=== PATIENT | female | born 1995 | race African-American/Black ===

== ENCOUNTER 2021-04-11 14:10 | Inpatient (IN) | payer OTHER, SELFPAY ==
[2021-04-11 17:53] VITALS: BP 132/91; PULSE 87; RESP 18; TEMP 36.3; O2SAT 99
--- NOTE | 2021-04-11 19:50 | PC.ADMIT ---
PT. IS A 26 YEAR OLD, BLACK, LITHUANIAN SPEAKING FEMALE WHO PRESENTS TO [facility] A TRANSMIT FROM [facility] AT APPROX 14:50 ON A CV STATUS. COVID TEST IS PENDING, UTOX WAS NOT ADMINISTERED. PT. REPORTS THE OCCASIONAL USE OF MARIJUANA. PT. HAS HAD PREVIOUS PSYCHIATRIC SERVICES, HER MOTHER CALLED 911 YESTERDAY AND REPORTED PT IS IN A CRISIS. MOTHER STATED HER DAUGHTER HAS BEEN RELIGIOUSLY PRE-OCCUPIED, TALKING ABOUT PROPHECY AND REPORTING DELUSIONS. MOTHER REPORTED PT. HAS NOT BEEN SLEEPING. PT. HERSELF IDENTIFIED THIS HER MAJOR ISSUE. I HAVE BEEN UP FOR 29 HOURS, USUALLY I'M UP FOR 24 HOURS . PT. DENIED SI,HI, SH, DEPRESSION AND ANXIETY. PT. HAS A DX OF BIPOLAR UNSP. WITH PSYCHOTIC FEATURES. PT. WAS HYPER VERBAL DURING ADMISSION, SHE WAS COOPERATIVE AND APPROPRIATE WHEN REDIRECTED BACK TO ASK QUESTIONS. SHE SIGNED ALL LEGALS, SAFETY TOOL OBTAINED AND SIGNED. PT. WAS ORIENTED TO UNIT, SHE NEVER SMOKED CIGARETTES. MED. ORDERS SEND TO [facility]AMMOND, PT. IS ON 15 MIN. SAFETY CHECKS. SHE REPORTED TO FEEL SAFE AND TO SEEK STAFF IF SAFETY ISSUES WILL ARISE.
[2021-04-11] MEDS: OLANZapine 5 MG TABLET PO (21:25)
[2021-04-11] MEDS: hydrOXYzine HCL 25 MG TABLET PO (21:31)
[2021-04-12] MEDS: OLANZapine 5 MG TABLET PO (04:21)
[2021-04-12] MEDS: Omeprazole 20 MG CAPSULE.DR PO (04:21)
[2021-04-12 06:00] VITALS: BP 130/61; PULSE 65; RESP 20; TEMP 36; O2SAT 100
[2021-04-12] MEDS: Montelukast Sodium 10 MG TABLET PO (08:11)
[2021-04-12] MEDS: Magnesium Oxide 400 MG TABLET 800 MG PO (08:11)
[2021-04-12 11:42] LABS: Amphetamine Screen Urine Not Detected (Not Detect); Barbiturates, Urine Not Detected (Not Detect); Benzodiazepines Screen Urine Not Detected (Not Detect); Cannabinoid Screen Urine POSITIVE (Not Detect); Cocaine Screen Urine Not Detected (Not Detect); Opiate Screen Urine Not Detected (Not Detect); Phencyclidine Screen Urine Not Detected (Not Detect)
[2021-04-12 12:15] LABS: MANUAL DIFF FLAG NO
[2021-04-12 12:22] LABS: Basophils Percent Auto 0.4 % (0-2); Eosinophils Absolute Auto 0.1 X10*3/uL (0.0-0.4); Eosinophils Percent Auto 1.2 % (0-4); Hematocrit 45.8 % (37-47); Hemoglobin 15.4 g/dl (12.0-16.0); Imm Gran Abs Auto 0.02 X10*3/uL (0.00-0.03); Imm Gran Pct Auto 0.2 % (0.0-0.4); Lymphocytes Absolute Auto 2.5 X10*3/uL (1.2-4.9); Lymphocytes Percent Auto 30.5 % (20-40); Mean Corpuscular HGB Conc 33.6 g/dl (31.0-35.0); Mean Corpuscular Volume 92.2 fL (80-98); Mean Platelet Volume 11.7 fL (9.4-12.3); Monocytes Absolute Auto 0.5 X10*3/uL (0.1-1.2); Neutrophils Absolute Auto 5.1 X10*3/uL (2.0-8.3); Neutrophils Percent Auto 61.7 % (45-73); Platelet Count 238 X10*3/uL (160-400); Red Blood Count 4.97 X10*6/uL (4.20-5.50); Red Cell Distribution Width 11.6 % (11.0-16.0); White Blood Count 8.3 X10*3/uL (4.8-10.8)
[2021-04-12 12:48] LABS: Anion Gap 15 (12-20); Blood Urea Nitrogen 10 mg/dL (9-16); Carbon Dioxide 21 mmol/L (22-29); Chloride 105 mmol/L (96-108); Estimated Glomerular Filt Rate > 60; Potassium 4.1 mmol/L (3.3-5.1); Sodium 137 mmol/L (135-145)
[2021-04-12 12:50] LABS: Alanine Aminotransferase 11 U/L (0-31); Albumin Level 5.1 g/dL (3.5-5.0); Alkaline Phosphatase 70 U/L (39-117); Aspartate Amino Transferase 15 U/L (5-31); Bilirubin Direct 0.4 mg/dL (0.0-0.5); Total Protein 8.7 g/dL (6.5-8.0)
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
--- NOTE | 2021-04-12 15:29 | PM.IMCN ---
History of Present Illness Data of Consult Service Date: 04/12/21 Requesting physician: Grant Hankins Primary Care Provider: Juana Lucia NP HPI Reason for consult: Routine Medical H&P This is a 26 yo F admitted to . Medical services consulted for routine medical H&P. Pt is seen and examined in her room. She endorses no medical complaints. She reports a history of asthma for which is was previously on singulair and PRN albuterol inhaler. She reports not being on them currently. She reports she was prescribed them in the past, but has not picked them up. She denies any current shortness of breath, cough or wheezing. Review of Systems Review of Systems: General - no fevers or chills Cardiovascular - no chest pain Respiratory - no shortness of breath or cough Abdominal- no abdominal pain, nausea, vomiting, diarrhea PMFSH Medical History (Updated 04/12/21 @ 15:33 by Eliseo Benavides MD) Asthma Bipolar 1 disorder Pertinent family history: CAD Social History Household Members: Family Housing: House Do you presently have visiting nurse or other home services: No Patient Tobacco Use Status: Never used Tobacco Smoked in Last 30 Days: No Patient Interested in Nicotine Replacement: No Patient Given Instructions on How to Stop Smoking: No Second Hand Smoke Exposure: No Use of substances other than those prescribed or required for medical reasons: Yes Substance Use Type: Marijuana Substance Use Frequency: Occasionally Last Used Substance: Just Prior to Admission Currently Displaying Signs/Symptoms of Drug Intoxication Withdrawal: No Any prior treatment program specific to substance use: No Have you been hit, kicked, punched, or otherwise hurt by someone within the past year? If so, by whom?: No Do you feel safe in your current relationship?: Yes Is there a partner from a previous relationship who is making you feel unsafe now?: No Are you made to feel afraid or neglected: No Spiritual Healthcare Practices: n/a [facility] Practices: [employer] Cultural Healthcare Practices: n/a Advance Directives: No Advance Directives Information Provided: No Advance Directives on File: No Do you have thoughts of harming others: None Do you have a plan to hurt others: No Plan Recently lost weight without trying: No Eating poorly because of decreased appetite: No Patient : No : No Poor oral hygiene: No Meds Allergies Allergy/AdvReac Type Severity Reaction Status Date / Time Sulfa (Sulfonamide Allergy Unknown DENIES Unverified 06/29/20 19:35 Antibiotics) [SULFA (SULFONAMIDE ANTIBIOTICS)] Active Medications: Current Medications Generic Name Dose Route Start Last Admin Trade Name Freq PRN Reason Stop Dose Admin Acetaminophen 650 mg 04/11/21 18:11 Acetaminophen 325 Mg Tablet PO Q6H PRN Headache/Pain Mild Scale (1-3) Al Hydroxide/Mg Hydroxide 30 ml 04/11/21 18:11 Magnesium Hydrox/Alum Hydrox 30 Ml Oral.Susp PO Q6H PRN Heartburn/Nausea Albuterol Sulfate 2 puff 04/11/21 18:15 Albuterol Sulfate 90 Mcg 8 Gm Inhaler INHALE Q4H PRN Shortness of Breath Hydroxyzine HCl 25 mg 04/11/21 18:11 04/11/21 21:31 Hydroxyzine Hcl 25 Mg Tablet PO 25 mg BEDTIME PRN Administration Anxiety Magnesium Hydroxide 30 ml 04/11/21 18:11 Milk Of Magnesia 30 Ml Oral.Susp PO DAILY PRN Constipation Magnesium Oxide 800 mg 04/12/21 09:00 04/12/21 08:11 Magnesium Oxide 400 Mg Tablet PO 800 mg DAILY MANUELA Administration Montelukast Sodium 10 mg 04/12/21 09:00 04/12/21 08:11 Montelukast Sodium 10 Mg Tablet PO 10 mg DAILY MANUELA Administration Olanzapine 5 mg 04/11/21 21:00 04/11/21 21:25 Olanzapine 5 Mg Tablet PO 5 mg BEDTIME MANUELA Administration Olanzapine 5 mg 04/11/21 18:44 04/12/21 04:21 Olanzapine 5 Mg Tablet PO 5 mg BEDTIME PRN Administration Insomnia Omeprazole 20 mg 04/12/21 06:30 04/12/21 04:21 Omeprazole 20 Mg Capsule.Dr PO 20 mg DAILY@0630 MANUELA Administration Physical Exam Vital Signs and Narrative: Vital Signs: Last Vital Signs Temp 96.8 F 04/12/21 06:00 Pulse 65 04/12/21 06:00 Resp 20 04/12/21 06:00 BP 130/61 04/12/21 06:00 Pulse Ox 100 04/12/21 06:00 Const: Other: General - no acute distress, appears comfortable Cardiovascular - regular rate and rhythm, S1-S2 Lungs - normal respiratory effort, clear to auscultation bilaterally, no wheezing Abdomen - soft, nontender, no rebound or guarding Extremities - no edema bilaterally Neuro - awake and alert, no focal deficits Results Labs CBC and Chem 7: 04/12/21 12:07 04/12/21 12:07 Labs: Laboratory Results - last 24 hr 04/11/21 04/12/21 04/12/21 Unknown 12:07 12:07 MCV 92.2 MCH 31.0 MCHC 33.6 RDW 11.6 Plt Count 238 MPV 11.7 Immature Gran % (Auto) 0.2 Neut % (Auto) 61.7 Lymph % (Auto) 30.5 [place] % (Auto) 6.0 Eos % (Auto) 1.2 Baso % (Auto) 0.4 Lymph # (Auto) 2.5 [place] # (Auto) 0.5 Eos # (Auto) 0.1 Baso # (Auto) 0.0 Abs Immat Gran (auto) 0.02 Absolute Neuts (auto) 5.1 Absolute Nucleated RBC 0.000 Nucleated RBC % (auto) 0.0 Anion Gap 15 Estim Creat Clear Calc TNP Estimated GFR > 60 Total Bilirubin Direct Bilirubin AST ALT Alkaline Phosphatase Total Protein Albumin Urine Opiates Screen Not Detected Ur Barbiturates Screen Not Detected Ur Phencyclidine Scrn Not Detected Ur Amphetamines Screen Not Detected U Benzodiazepines Scrn Not Detected Urine Cocaine Screen Not Detected U Marijuana (THC) Screen POSITIVE H 04/12/21 12:07 MCV MCH MCHC RDW Plt Count MPV Immature Gran % (Auto) Neut % (Auto) Lymph % (Auto) [place] % (Auto) Eos % (Auto) Baso % (Auto) Lymph # (Auto) [place] # (Auto) Eos # (Auto) Baso # (Auto) Abs Immat Gran (auto) Absolute Neuts (auto) Absolute Nucleated RBC Nucleated RBC % (auto) Anion Gap Estim Creat Clear Calc Estimated GFR Total Bilirubin 1.0 Direct Bilirubin 0.4 AST 15 ALT 11 Alkaline Phosphatase 70 Total Protein 8.7 H Albumin 5.1 H Urine Opiates Screen Ur Barbiturates Screen Ur Phencyclidine Scrn Ur Amphetamines Screen U Benzodiazepines Scrn Urine Cocaine Screen U Marijuana (THC) Screen Assessment and Plan (1) Routine check-up: Status: Acute This is a 26 yo F with a PMH of asthma (likely mild and intermittent per her reported symptoms / history) who is admitted to . Medical consultation sought for routine medical H&P. Patient has no active medical issues. In regards to her asthma, she reports that she was previously on Singulair and PRN albuterol. At this time, she does not have any active asthma symptoms. She does report to me that she has a PCP and I would recommend that she follow up with them to restart her asthma medications. She can use PRN albuterol while here if she feels short of breath or has wheezing. Would defer Singulair to oupatient / PCP. Continue care per primary team. Please re-consult if any issues arise.
[2021-04-12 18:00] VITALS: BP 132/85; PULSE 65; TEMP 36.5
[2021-04-12] MEDS: OLANZapine 7.5 MG TABLET PO (20:57)
[2021-04-12] MEDS: Lithium Carbonate ER 450 MG TABLET.ER PO (20:57)
[2021-04-13] MEDS: OLANZapine 7.5 MG TABLET PO ×2 (03:03→21:08)
[2021-04-13 04:32] LABS: HIV AB/AG Nonreactive (Nonreactive); HIV Num 1 0.06 S/CO (0.00-0.99)
[2021-04-13 06:00] VITALS: BP 112/67; PULSE 67; TEMP 36.4
[2021-04-13] MEDS: Omeprazole 20 MG CAPSULE.DR PO (06:41)
[2021-04-13] MEDS: Lithium Carbonate ER 450 MG TABLET.ER PO ×2 (08:55→20:53)
[2021-04-13] MEDS: Magnesium Oxide 400 MG TABLET 800 MG PO (08:55)
[2021-04-13] MEDS: Montelukast Sodium 10 MG TABLET PO (08:55)
--- NOTE | 2021-04-13 09:27 | P.PNPSI_ITS ---
Subjective Subjective Date of Service: 04/13/21 Reason For Visit: MOOD DISORDER Interim History: patient reports that she did sleep much of the night and is feeling better. However she says she knows she is still manic and though she is struggling to keep herself from talking fast and being intrusive, it is hard to do. Patient reports she is tolerating lithium well and wants to continue with it. She agrees to start gabapentin with a built-in taper just to help things calm down a bit. She said she does not like the diagnosis bipolar disorder because her [id number] has the same diagnosis and is extremely aggressive. Patient says that she worries she will be associated with that behavior; that said she does understand she has unsafe behaviors when manic. Patient said her parents have been very supportive and a both director social's and committed to helping her recover. Medication Compliance: Yes Side effects from medications: No Attending Groups: Yes Mental Status Exam Mental Status Exam Narrative: Pt is alert and oriented; behavior is cooperative, friendly; patient is not in distress; dressed in casual attire unkempt hair, but with adequate hygiene; mood is described as good and affect expansive; eye contact appropriate; Speech is pressured and a little loud, but able to interrupted. Ceasar e psychomotor agitation as she can be animated when talking; thought process is mostly organized and goal directed but can be circumstantial and repetitive. Thought content is on getting treatment and otherwise pertinent to relevant topics; some grandiosity but without any delusional content or paranoid ideations; denies any SI/HI. There is no evidence of perceptual disturbance and she denies aVH. Patients insight and judgment appear impaired. Diagnostics Vital Signs (24Hr): Vital Signs - 24 hr 04/12/21 18:00 04/13/21 06:00 Temperature 97.7 F 97.5 F Pulse Rate 65 67 Blood Pressure 132/85 112/67 Labs Results: 04/12/21 12:07 04/12/21 12:07 Labs: Laboratory Results - last 48 hr 04/11/21 04/12/21 04/12/21 Unknown 12:07 12:07 WBC 8.3 RBC 4.97 Hgb 15.4 Hct 45.8 MCV 92.2 MCH 31.0 MCHC 33.6 RDW 11.6 Plt Count 238 MPV 11.7 Immature Gran % (Auto) 0.2 Neut % (Auto) 61.7 Lymph % (Auto) 30.5 [place] % (Auto) 6.0 Eos % (Auto) 1.2 Baso % (Auto) 0.4 Lymph # (Auto) 2.5 [place] # (Auto) 0.5 Eos # (Auto) 0.1 Baso # (Auto) 0.0 Abs Immat Gran (auto) 0.02 Absolute Neuts (auto) 5.1 Absolute Nucleated RBC 0.000 Nucleated RBC % (auto) 0.0 Sodium 137 Potassium 4.1 Chloride 105 Carbon Dioxide 21 L Anion Gap 15 BUN 10 Creatinine 0.87 Estim Creat Clear Calc TNP Estimated GFR > 60 Total Bilirubin Direct Bilirubin AST ALT Alkaline Phosphatase Total Protein Albumin Urine Opiates Screen Not Detected Ur Barbiturates Screen Not Detected Ur Phencyclidine Scrn Not Detected Ur Amphetamines Screen Not Detected U Benzodiazepines Scrn Not Detected Urine Cocaine Screen Not Detected U Marijuana (THC) Screen POSITIVE H HIV 1&2 Ab/P24 Ag 4thGn 04/12/21 04/12/21 12:07 12:07 WBC RBC Hgb Hct MCV MCH MCHC RDW Plt Count MPV Immature Gran % (Auto) Neut % (Auto) Lymph % (Auto) [place] % (Auto) Eos % (Auto) Baso % (Auto) Lymph # (Auto) [place] # (Auto) Eos # (Auto) Baso # (Auto) Abs Immat Gran (auto) Absolute Neuts (auto) Absolute Nucleated RBC Nucleated RBC % (auto) Sodium Potassium Chloride Carbon Dioxide Anion Gap BUN Creatinine Estim Creat Clear Calc Estimated GFR Total Bilirubin 1.0 Direct Bilirubin 0.4 AST 15 ALT 11 Alkaline Phosphatase 70 Total Protein 8.7 H Albumin 5.1 H Urine Opiates Screen Ur Barbiturates Screen Ur Phencyclidine Scrn Ur Amphetamines Screen U Benzodiazepines Scrn Urine Cocaine Screen U Marijuana (THC) Screen HIV 1&2 Ab/P24 Ag 4thGn Nonreactive Medications Medications Current Medications Generic Name Dose Route Start Last Admin Trade Name Freq PRN Reason Stop Dose Admin Acetaminophen 650 mg 04/11/21 18:11 Acetaminophen 325 Mg Tablet PO Q6H PRN Headache/Pain Mild Scale (1-3) Al Hydroxide/Mg Hydroxide 30 ml 04/11/21 18:11 Magnesium Hydrox/Alum Hydrox 30 Ml Oral.Susp PO Q6H PRN Heartburn/Nausea Albuterol Sulfate 2 puff 04/11/21 18:15 Albuterol Sulfate 90 Mcg 8 Gm Inhaler INHALE Q4H PRN Shortness of Breath [place] Carbonate 450 mg 04/12/21 21:00 04/13/21 08:55 [place] Carbonate Er 450 Mg Tablet.Er PO 450 mg BID MANUELA Administration Magnesium Hydroxide 30 ml 04/11/21 18:11 Milk Of Magnesia 30 Ml Oral.Susp PO DAILY PRN Constipation Magnesium Oxide 800 mg 04/12/21 09:00 04/13/21 08:55 Magnesium Oxide 400 Mg Tablet PO 800 mg DAILY MANUELA Administration Montelukast Sodium 10 mg 04/12/21 09:00 04/13/21 08:55 Montelukast Sodium 10 Mg Tablet PO 10 mg DAILY MANUELA Administration Olanzapine 7.5 mg 04/12/21 20:10 04/13/21 03:03 Olanzapine 7.5 Mg Tablet PO 7.5 mg BID PRN Administration agitation/manic behaviors Omeprazole 20 mg 04/12/21 06:30 04/13/21 06:41 Omeprazole 20 Mg Capsule. PO 20 mg DAILY@0630 MANUELA Administration Allergies Allergies Allergy/AdvReac Type Severity Reaction Status Date / Time Sulfa (Sulfonamide Allergy Unknown DENIES Unverified 06/29/20 19:35 Antibiotics) [SULFA (SULFONAMIDE ANTIBIOTICS)] Assessment & Plan Assessment & Plan (1) Bipolar 1 disorder: Status: Acute Code(s): F31.9 - Bipolar disorder, unspecified Assessment and Plan: IMPRESSION: Patient is a 26 yo female with hx of depression and manic episodes who presents for manic behavior. patient is currently hypomanic, but reportedly coming off a more severe manic episode which has been going on for about 2 weeks and involves little to no sleep, hypersexual behavior, auditory hallucinations, some grandiosity and worship preoccupation (and a history of episodes that involved excessive spending up to 10,000 dollars and not being able to pay rent). this may have been triggered by stress starting a trial of Paxil, but patient has had such episodes prior to Paxil. She currently agrees that she has bipolar disorder and wants medication treatment and agrees to lithium. Given her recent hypersexual behavior with multiple partners, patient would like to have STD tests. Labs reviewed from [facility] where she was transferred from and she has a negative blood test. she remains manic, but is improving. Has been started on lithium without negative side effects PLAN: patient on CV Q 15 minutes checks Started lithium 450 mg b.i.d. HIV test negative, other STDs tests pending labs ordered for trough low Greater than 50% of the session was spent on counseling and/or coordination of care Reason for contiued inpatient stay Substantial Risk for: rapid decompensation
[2021-04-13 10:52] LABS: UPreg QC Valid YES; Urine Pregnancy NEGATIVE (NEGATIVE)
[2021-04-13] MEDS: Gabapentin 300 MG CAPSULE PO ×2 (13:07→20:52)
[2021-04-13 17:02] VITALS: BP 135/75; PULSE 85; RESP 18; TEMP 36.5; O2SAT 100
[2021-04-14] MEDS: OLANZapine 7.5 MG TABLET PO ×2 (04:13→21:14)
[2021-04-14] MEDS: Omeprazole 20 MG CAPSULE.DR PO (04:13)
[2021-04-14 09:04] VITALS: BP 147/86; PULSE 93; RESP 18; TEMP 37; O2SAT 98
[2021-04-14] MEDS: Montelukast Sodium 10 MG TABLET PO (09:13)
[2021-04-14] MEDS: Magnesium Oxide 400 MG TABLET 800 MG PO (09:13)
[2021-04-14] MEDS: Gabapentin 300 MG CAPSULE PO ×3 (09:13→21:13)
[2021-04-14] MEDS: Lithium Carbonate ER 450 MG TABLET.ER PO ×2 (09:13→21:13)
[2021-04-14 09:19] LABS: CT PCR NOT DETECTED (Not Detect.); NG PCR NOT DETECTED (Not Detect.)
[2021-04-14 16:31] VITALS: BP 144/91; PULSE 97; RESP 18; O2SAT 100
--- NOTE | 2021-04-14 17:58 | P.PNPSI_ITS ---
Subjective Subjective Date of Service: 04/14/21 Reason For Visit: MOOD DISORDER Interim History: reports she slept a little better with increased zyprexa but still up in night; continues to be hypomanic; STD labs negative Medication Compliance: Yes Side effects from medications: No Attending Groups: No Review of Systems Review of Systems no changes Mental Status Exam Mental Status Exam Narrative: Pt is alert and oriented; behavior is cooperative, friendly; patient is not in distress; dressed in casual attire unkempt hair, but with adequate hygiene; mood is described as good and affect expansive; eye contact appropriate; Speech is pressured and a little loud, but able to interrupted. Some psychomotor agitation as she can be animated when talking; thought process is mostly organized and goal directed but can be circumstantial and repetitive. Thought content is on getting treatment and otherwise pertinent to relevant topics; some grandiosity but without any delusional content or paranoid ideations; denies any SI/HI. There is no evidence of perceptual disturbance and she denies aVH. Patients insight and judgment appear impaired. Patient Appearance: Disheveled Patient Orientation: Person, Place and Situation Level of Consciousness: Appropriate and Restless Patient Behavior: Talkative and Restless Diagnostics Vital Signs (24Hr): Vital Signs - 24 hr 04/14/21 09:04 04/14/21 16:31 Temperature 98.6 F Pulse Rate 93 97 Respiratory Rate 18 18 Blood Pressure 147/86 H 144/91 H Pulse Oximetry 98 100 Labs Results: 04/12/21 12:07 04/12/21 12:07 Labs: Laboratory Results - last 48 hr 04/12/21 04/13/21 04/13/21 12:07 10:37 Unknown Urine Test NEGATIVE Chlam trachomat DNA PCR NOT DETECTED HIV 1&2 Ab/P24 Ag 4thGn Nonreactive N.gonorrhoeae DNA (PCR) NOT DETECTED Medications Medications Current Medications Generic Name Dose Route Start Last Admin Trade Name Freq PRN Reason Stop Dose Admin Acetaminophen 650 mg 04/11/21 18:11 Acetaminophen 325 Mg Tablet PO Q6H PRN Headache/Pain Mild Scale (1-3) Al Hydroxide/Mg Hydroxide 30 ml 04/11/21 18:11 Magnesium Hydrox/Alum Hydrox 30 Ml Oral.Susp PO Q6H PRN Heartburn/Nausea Albuterol Sulfate 2 puff 04/11/21 18:15 Albuterol Sulfate 90 Mcg 8 Gm Inhaler INHALE Q4H PRN Shortness of Breath Gabapentin 300 mg 04/13/21 15:00 04/14/21 14:42 Gabapentin 300 Mg Capsule PO 04/14/21 23:59 300 mg TID MANUELA Administration Gabapentin 300 mg 04/15/21 09:00 Gabapentin 300 Mg Capsule PO 04/16/21 23:59 BID MANUELA Gabapentin 300 mg 04/17/21 09:00 Gabapentin 300 Mg Capsule PO 04/17/21 09:01 ONCE ONE [place] Carbonate 450 mg 04/12/21 21:00 04/14/21 09:13 [place] Carbonate Er 450 Mg Tablet.Er PO 450 mg BID MANUELA Administration Magnesium Hydroxide 30 ml 04/11/21 18:11 Milk Of Magnesia 30 Ml Oral.Susp PO DAILY PRN Constipation Magnesium Oxide 800 mg 04/12/21 09:00 04/14/21 09:13 Magnesium Oxide 400 Mg Tablet PO 800 mg DAILY MANUELA Administration Montelukast Sodium 10 mg 04/12/21 09:00 04/14/21 09:13 Montelukast Sodium 10 Mg Tablet PO 10 mg DAILY MANUELA Administration Olanzapine 7.5 mg 04/12/21 20:10 04/14/21 04:13 Olanzapine 7.5 Mg Tablet PO 7.5 mg BID PRN Administration agitation/manic behaviors Omeprazole 20 mg 04/12/21 06:30 04/14/21 04:13 Omeprazole 20 Mg Capsule. PO 20 mg DAILY@0630 MANUELA Administration Allergies Allergies Allergy/AdvReac Type Severity Reaction Status Date / Time Sulfa (Sulfonamide Allergy Unknown DENIES Unverified 06/29/20 19:35 Antibiotics) [SULFA (SULFONAMIDE ANTIBIOTICS)] Assessment & Plan Assessment & Plan (1) Bipolar 1 disorder: Status: Acute Code(s): F31.9 - Bipolar disorder, unspecified Assessment and Plan: IMPRESSION: Patient is a 26 yo female with hx of depression and manic episodes who presents for manic behavior. patient is currently hypomanic, but reportedly coming off a more severe manic episode which has been going on for about 2 weeks and involves little to no sleep, hypersexual behavior, auditory hallucinations, some grandiosity and catholic preoccupation (and a history of episodes that involved excessive spending up to 10,000 dollars and not being able to pay rent). this may have been triggered by stress starting a trial of Paxil, but patient has had such episodes prior to Paxil. She currently agrees that she has bipolar disorder and wants medication treatment and agrees to lithium. Given her recent hypersexual behavior with multiple partners, patient would like to have STD tests. Labs reviewed from [facility] where she was transferred from and she has a negative blood test. she remains manic, but is improving. Has been started on lithium without negative side effects PLAN: add hydroxyzine 25 mg at hs PRN for sleep patient on CV Q 15 minutes checks Started lithium 450 mg b.i.d. HIV test negative, other STDs tests negative labs ordered for trough low Greater than 50% of the session was spent on counseling and/or coordination of care Reason for contiued inpatient stay Substantial Risk for: harm to self, inability to function and med/psych decompensation
[2021-04-14] MEDS: hydrOXYzine HCL 25 MG TABLET PO (21:14)
[2021-04-15 06:00] VITALS: BP 146/97; PULSE 96; RESP 16; TEMP 36.4; O2SAT 96
[2021-04-15] MEDS: Gabapentin 300 MG CAPSULE PO ×3 (08:10→21:10)
[2021-04-15] MEDS: Magnesium Oxide 400 MG TABLET 800 MG PO (08:10)
[2021-04-15] MEDS: Lithium Carbonate ER 450 MG TABLET.ER PO ×2 (08:10→21:10)
[2021-04-15] MEDS: Omeprazole 20 MG CAPSULE.DR PO (08:11)
[2021-04-15] MEDS: Montelukast Sodium 10 MG TABLET PO (08:11)
[2021-04-15] MEDS: Acetaminophen 325 MG TABLET 650 MG PO (08:17)
--- NOTE | 2021-04-15 11:44 | P.PNPSI_ITS ---
Subjective Subjective Date of Service: 04/15/21 Reason For Visit: MOOD DISORDER Interim History: reports she slept a little better with increased zyprexa but still up in night;anxious last night about roomate talking in sleep but able to seek out staff for support; continues to be hypomanic; pressured speech. STD labs negative Review of Systems Review of Systems no changes Mental Status Exam Mental Status Exam Narrative: Patient Appearance: Appropriate Patient Orientation: Person, Place and Situation Level of Consciousness: Appropriate and Restless Patient Behavior: Talkative, Restless and Anxious Mood Description: Euphoric Speech Pattern: Rapid and Excessive Judgement: Fair Diagnostics Vital Signs (24Hr): Vital Signs - 24 hr 04/14/21 16:31 04/15/21 06:00 Temperature 97.5 F Pulse Rate 97 96 Respiratory Rate 18 16 Blood Pressure 144/91 H 146/97 H Pulse Oximetry 100 96 Labs Results: 04/12/21 12:07 04/12/21 12:07 Labs: Laboratory Results - last 48 hr 04/13/21 Unknown Chlam trachomat DNA PCR NOT DETECTED N.gonorrhoeae DNA (PCR) NOT DETECTED Medications Medications Current Medications Generic Name Dose Route Start Last Admin Trade Name Freq PRN Reason Stop Dose Admin Acetaminophen 650 mg 04/11/21 18:11 04/15/21 08:17 Acetaminophen 325 Mg Tablet PO 650 mg Q6H PRN Administration Headache/Pain Mild Scale (1-3) Al Hydroxide/Mg Hydroxide 30 ml 04/11/21 18:11 Magnesium Hydrox/Alum Hydrox 30 Ml Oral.Susp PO Q6H PRN Heartburn/Nausea Albuterol Sulfate 2 puff 04/11/21 18:15 Albuterol Sulfate 90 Mcg 8 Gm Inhaler INHALE Q4H PRN Shortness of Breath Gabapentin 300 mg 04/15/21 09:00 04/15/21 08:11 Gabapentin 300 Mg Capsule PO 04/16/21 23:59 300 mg BID MANUELA Administration Gabapentin 300 mg 04/17/21 09:00 04/15/21 08:10 Gabapentin 300 Mg Capsule PO 04/17/21 09:01 300 mg ONCE ONE Administration Hydroxyzine HCl 25 mg 04/14/21 18:35 04/14/21 21:14 Hydroxyzine Hcl 25 Mg Tablet PO 25 mg BEDTIME PRN Administration Sleep [place] Carbonate 450 mg 04/12/21 21:00 04/15/21 08:10 [place] Carbonate Er 450 Mg Tablet.Er PO 450 mg BID MANUELA Administration Magnesium Hydroxide 30 ml 04/11/21 18:11 Milk Of Magnesia 30 Ml Oral.Susp PO DAILY PRN Constipation Magnesium Oxide 800 mg 04/12/21 09:00 04/15/21 08:10 Magnesium Oxide 400 Mg Tablet PO 800 mg DAILY MANUELA Administration Montelukast Sodium 10 mg 04/12/21 09:00 04/15/21 08:11 Montelukast Sodium 10 Mg Tablet PO 10 mg DAILY MANUELA Administration Olanzapine 7.5 mg 04/12/21 20:10 04/14/21 21:14 Olanzapine 7.5 Mg Tablet PO 7.5 mg BID PRN Administration agitation/manic behaviors Omeprazole 20 mg 04/12/21 06:30 04/15/21 08:11 Omeprazole 20 Mg Capsule. PO 20 mg DAILY@0630 MANUELA Administration Allergies Allergies Allergy/AdvReac Type Severity Reaction Status Date / Time Sulfa (Sulfonamide Allergy Unknown DENIES Unverified 06/29/20 19:35 Antibiotics) [SULFA (SULFONAMIDE ANTIBIOTICS)] Assessment & Plan Assessment & Plan (1) Bipolar 1 disorder: Status: Acute Code(s): F31.9 - Bipolar disorder, unspecified Assessment and Plan: IMPRESSION: Patient is a 26 yo female with hx of depression and manic episodes who presents for manic behavior. patient is currently hypomanic, but reportedly coming off a more severe manic episode which has been going on for about 2 weeks and involves little to no sleep, hypersexual behavior, auditory hallucinations, some grandiosity and mandaeism preoccupation (and a history of episodes that involved excessive spending up to 10,000 dollars and not being able to pay rent). this may have been triggered by stress starting a trial of Paxil, but patient has had such e pisodes prior to Paxil. She currently agrees that she has bipolar disorder and wants medication treatment and agrees to lithium. Given her recent hypersexual behavior with multiple partners, patient would like to have STD tests. Labs reviewed from [facility] where she was transferred from and she has a negative blood test. she remains manic, but is improving. Has been started on lithium without negative side effects PLAN: add hydroxyzine 25 mg at hs PRN for sleep patient on CV Q15 minutes checks Taking lithium 450 mg b.i.d. tolerating gabapentin HIV test negative, other STDs tests negative labs ordered for trough low Greater than 50% of the session was spent on counseling and/or coordination of care Reason for contiued inpatient stay Substantial Risk for: harm to self, inability to function, rapid decompensation and med/psych decompensation
[2021-04-15 18:00] VITALS: BP 132/79; PULSE 102; RESP 16; TEMP 36.5; O2SAT 100
[2021-04-15] MEDS: traZODone HCL 50 MG TABLET PO (21:10)
[2021-04-16 06:00] VITALS: BP 133/80; PULSE 98; TEMP 36.7; O2SAT 98
[2021-04-16] MEDS: Omeprazole 20 MG CAPSULE.DR PO (06:15)
[2021-04-16] MEDS: Gabapentin 300 MG CAPSULE PO ×2 (08:43→20:13)
[2021-04-16] MEDS: Lithium Carbonate ER 450 MG TABLET.ER PO ×2 (08:43→20:13)
[2021-04-16] MEDS: Magnesium Oxide 400 MG TABLET 800 MG PO (08:43)
[2021-04-16] MEDS: Montelukast Sodium 10 MG TABLET PO (08:43)
--- NOTE | 2021-04-16 12:33 | P.PNPSI_ITS ---
Subjective Subjective Date of Service: 04/16/21 Reason For Visit: MOOD DISORDER Interim History: pt presenting a bit hypomanic; pressuredspeech at times; elevated mood and energy; reports she slept a little better but still up in night; STD labs negative Review of Systems Review of Systems no changes Mental Status Exam Mental Status Exam Narrative: Patient Appearance: Appropriate Patient Orientation: Person, Place and Situation Level of Consciousness: Appropriate and Restless Patient Behavior: Talkative, Restless and Anxious Mood Description: Euphoric and Anxious Affect Description: Labile Ability to Follow Directions: Good Speech Pattern: Rapid and Excessive Thought Process: Goal Oriented Thought Content: positive for Goal Oriented Judgement: Fair Diagnostics Vital Signs (24Hr): Vital Signs - 24 hr 04/15/21 18:00 04/16/21 06:00 Temperature 97.7 F 98.1 F Pulse Rate 102 H 98 Respiratory Rate 16 Blood Pressure 132/79 133/80 Pulse Oximetry 100 98 Labs Results: 04/12/21 12:07 04/12/21 12:07 Medications Medications Current Medications Generic Name Dose Route Start Last Admin Trade Name Nealq PRN Reason Stop Dose Admin Acetaminophen 650 mg 04/11/21 18:11 04/15/21 08:17 Acetaminophen 325 Mg Tablet PO 650 mg Q6H PRN Administration Headache/Pain Mild Scale (1-3) Al Hydroxide/Mg Hydroxide 30 ml 04/11/21 18:11 Magnesium Hydrox/Alum Hydrox 30 Ml Oral.Susp PO Q6H PRN Heartburn/Nausea Albuterol Sulfate 2 puff 04/11/21 18:15 Albuterol Sulfate 90 Mcg 8 Gm Inhaler INHALE Q4H PRN Shortness of Breath Gabapentin 300 mg 04/15/21 09:00 04/16/21 08:43 Gabapentin 300 Mg Capsule PO 04/16/21 23:59 300 mg BID MANUELA Administration Gabapentin 300 mg 04/17/21 09:00 04/15/21 08:10 Gabapentin 300 Mg Capsule PO 04/17/21 09:01 300 mg ONCE ONE Administration Hydroxyzine HCl 25 mg 04/14/21 18:35 04/14/21 21:14 Hydroxyzine Hcl 25 Mg Tablet PO 25 mg BEDTIME PRN Administration Sleep [place] Carbonate 450 mg 04/12/21 21:00 04/16/21 08:43 [place] Carbonate Er 450 Mg Tablet.Er PO 450 mg BID MANUELA Administration Magnesium Hydroxide 30 ml 04/11/21 18:11 Milk Of Magnesia 30 Ml Oral.Susp PO DAILY PRN Constipation Magnesium Oxide 800 mg 04/12/21 09:00 04/16/21 08:43 Magnesium Oxide 400 Mg Tablet PO 800 mg DAILY MANUELA Administration Montelukast Sodium 10 mg 04/12/21 09:00 04/16/21 08:43 Montelukast Sodium 10 Mg Tablet PO 10 mg DAILY MANUELA Administration Olanzapine 7.5 mg 04/12/21 20:10 04/14/21 21:14 Olanzapine 7.5 Mg Tablet PO 7.5 mg BID PRN Administration agitation/manic behaviors Omeprazole 20 mg 04/12/21 06:30 04/16/21 06:15 Omeprazole 20 Mg Capsule. PO 20 mg DAILY@0630 MANUELA Administration Trazodone HCl 50 mg 04/15/21 21:00 04/15/21 21:10 Trazodone Hcl 50 Mg Tablet PO 50 mg BEDTIME MANUELA Administration Allergies Allergies Allergy/AdvReac Type Severity Reaction Status Date / Time Sulfa (Sulfonamide Allergy Unknown DENIES Unverified 06/29/20 19:35 Antibiotics) [SULFA (SULFONAMIDE ANTIBIOTICS)] Assessment & Plan Assessment & Plan (1) Bipolar 1 disorder: Status: Acute Code(s): F31.9 - Bipolar disorder, unspecified Assessment and Plan: IMPRESSION: Patient is a 26 yo female with hx of depression and manic episodes who presents for manic behavior. patient is currently hypomanic, but reportedly coming off a more severe manic episode which has been going on for about 2 weeks and involves little to no sleep, hypersexual behavior, auditory hallucinations, some grandiosity and hindu preoccupation (and a history of episodes that involved excessive spending up to 10,000 dollars and not being able to pay rent). this may have been triggered by stress starting a trial of Paxil, but patient has had such episodes prior to Paxil. She currently agrees that she has bipolar disorder and wants medication treatment and agrees to lithium. Given her recent hypersexual behavior with multiple partners, patient would like to have STD tests. Labs reviewed from [facility] where she was transferred from and she has a negative blood test. she remains manic, but is improving. Has been started on lithium without negative side effects PLAN: add hydroxyzine 25 mg at hs PRN for sleep patient on CV Q15 minutes checks Taking lithium 450 mg b.i.d. tolerating gabapentin HIV test negative, other STDs tests negative labs ordered for trough low Greater than 50% of the session was spent on counseling and/or coordination of care Reason for contiued inpatient stay Substantial Risk for: harm to self, inability to function and rapid decompensation
[2021-04-16] MEDS: OLANZapine 7.5 MG TABLET PO (20:13)
[2021-04-16] MEDS: traZODone HCL 50 MG TABLET PO (20:13)
[2021-04-16 20:17] VITALS: BP 123/59; PULSE 69; TEMP 37.1; O2SAT 100
[2021-04-17 06:00] VITALS: BP 130/90; PULSE 105; RESP 18; TEMP 36.6; O2SAT 98
[2021-04-17] MEDS: Omeprazole 20 MG CAPSULE.DR PO (06:37)
[2021-04-17] MEDS: Lithium Carbonate ER 450 MG TABLET.ER PO ×2 (09:36→20:30)
[2021-04-17] MEDS: Montelukast Sodium 10 MG TABLET PO (09:36)
[2021-04-17] MEDS: Magnesium Oxide 400 MG TABLET 800 MG PO (09:37)
[2021-04-17] MEDS: OLANZapine 7.5 MG TABLET PO ×2 (09:40→20:31)
--- NOTE | 2021-04-17 09:54 | P.PNPSI_ITS ---
Subjective Subjective Date of Service: 04/17/21 Reason For Visit: MOOD DISORDER Subjective Notes: 3 Day Interim History: patient reports she feels a lot better and that most of her donovan has resolved. She reports that she has been sleeping through the night, though she often has to move her bed due to her roommates ongoing loud snoring and talking in her sleep; patient reports that she has been so much more aware what she was like before she came in to now and says the words in her head are able to come out much slower, her mind is not racing in that prior to admission, she was but [place] rabbit. . . Extremely hyper and she attributes increased drive toward sex as a part of her donovan, though she does wonder if she has a sex addiction. Patient denies any side effects from the medications and would like to have olanzapine as a p.r.n.. Family Service Assistant reviewed again the risks and side effects of both lithium and Zyprexa including discussing the need to keep hydrated, avoid NSAIDs and remain on control (has IUD) given risk of terotogens. also discussed warning signs of burgeoning manic episode in the need for sleep; she agrees that working 3rd shift is not conducive to staying stable, something her father also brought up. Patient signed a 3 day notice and said she would like to discharge tomorrow if possible, as she returns to live with her parents whom. are her both very supportive Mental Status Exam Mental Status Exam Narrative: Pt is alert and oriented; behavior is cooperative, friendly and calm; patient is not in distress; dressed in casual attire with appropriately styled hair and good hygiene; mood is described as good and affect congruent, appropriate; eye contact appropriate; Speech is normal rate, volume and prosody, not pressured; no psychomotor agitation; thought process is organized. linear and goal directed. Thought content is on staying stable, on continuing treatment and otherwise pertinent to relevant topics; no grandiosity, delusional content or paranoid ideations; denies any SI/HI. There is no evidence of perceptual disturbance and she denies aVH. Patients insight and judgment appear intact. Diagnostics Vital Signs (24Hr): Vital Signs - 24 hr 04/16/21 20:17 04/17/21 06:00 Temperature 98.7 F 98 F Pulse Rate 69 105 H Respiratory Rate 18 Blood Pressure 123/59 L 130/90 H Pulse Oximetry 100 98 Labs Results: 04/12/21 12:07 04/12/21 12:07 Medications Medications Current Medications Generic Name Dose Route Start Last Admin Trade Name Freq PRN Reason Stop Dose Admin Acetaminophen 650 mg 04/11/21 18:11 04/15/21 08:17 Acetaminophen 325 Mg Tablet PO 650 mg Q6H PRN Administration Headache/Pain Mild Scale (1-3) Al Hydroxide/Mg Hydroxide 30 ml 04/11/21 18:11 Magnesium Hydrox/Alum Hydrox 30 Ml Oral.Susp PO Q6H PRN Heartburn/Nausea Albuterol Sulfate 2 puff 04/11/21 18:15 Albuterol Sulfate 90 Mcg 8 Gm Inhaler INHALE Q4H PRN Shortness of Breath Hydroxyzine HCl 25 mg 04/14/21 18:35 04/14/21 21:14 Hydroxyzine Hcl 25 Mg Tablet PO 25 mg BEDTIME PRN Administration Sleep [place] Carbonate 450 mg 04/12/21 21:00 04/17/21 09:36 [place] Carbonate Er 450 Mg Tablet.Er PO 450 mg BID MANUELA Administration Magnesium Hydroxide 30 ml 04/11/21 18:11 Milk Of Magnesia 30 Ml Oral.Susp PO DAILY PRN Constipation Magnesium Oxide 800 mg 04/12/21 09:00 04/17/21 09:37 Magnesium Oxide 400 Mg Tablet PO 800 mg DAILY MANUELA Administration Montelukast Sodium 10 mg 04/12/21 09:00 04/17/21 09:36 Montelukast Sodium 10 Mg Tablet PO 10 mg DAILY MANUELA Administration Olanzapine 7.5 mg 04/12/21 20:10 04/17/21 09:40 Olanzapine 7.5 Mg Tablet PO 7.5 mg BID PRN Administration agitation/manic behaviors Omeprazole 20 mg 04/12/21 06:30 04/17/21 06:37 Omeprazole 20 Mg Capsule. PO 20 mg DAILY@0630 MANUELA Administration Trazodone HCl 50 mg 04/15/21 21:00 04/16/21 20:13 Trazodone Hcl 50 Mg Tablet PO 50 mg BEDTIME MANUELA Administration Allergies Allergies Allergy/AdvReac Type Severity Reaction Status Date / Time Sulfa (Sulfonamide Allergy Unknown DENIES Unverified 06/29/20 19:35 Antibiotics) [SULFA (SULFONAMIDE ANTIBIOTICS)] Assessment & Plan Assessment & Plan (1) Bipolar 1 disorder: Status: Acute Code(s): F31.9 - Bipolar disorder, unspecified Assessment and Plan: IMPRESSION: Patient is a 26 yo female with hx of depression and manic episodes who presents for manic behavior. patient is currently hypomanic, but reportedly coming off a more severe manic episode which has been going on for about 2 weeks and involves little to no sleep, hypersexual behavior, auditory hallucinations, some grandiosity and congregation preoccupation (and a history of episodes that involved excessive spending up to 10,000 dollars and not being able to pay rent). this may have been triggered by stress starting a trial of Paxil, but patient has had such episodes prior to Paxil. She currently agrees that she has bipolar disorder and wants medication treatment and agrees to lithium. Given her recent hypersexual behavior with multiple partners, patient would like to have STD tests. Labs reviewed from [facility] where she was transferred from and she has a negative blood test. patient has stabilized on combination of lithium and p.r.n. Zyprexa which she has been taking nearly every day; patient's manic symptoms have resolved and she is stable for discharge. Family Service Assistant discussed and patient agreed to work with her outpatient provider regarding whether to/ how to taper off Zyprexa. patient talked about anxiety symptoms including some mild compulsions to call her parents frequently as well as her history of having multiple sexual partners and whether this is due to manic episodes or something separate; patient agrees that at the moment it is too difficult to untangle but she will continue to work with outpatient providers and including her therapist in order to further assess; discussed daily use of cannabis and risks involved; pt said she is cutting down and will consider stopping use. lithium level and associated labs to be drawn tomorrow If patient remains stable will proceed with discharge as she has requested (placed in a 3 day notice) PLAN: hydroxyzine 25 mg at hs PRN for sleep patient on CV Q15 minutes checks Taking lithium 450 mg b.i.d. tolerating gabapentin HIV test negative, other STDs tests negative labs ordered for trough low Greater than 50% of the session was spent on counseling and/or coordination of care Reason for contiued inpatient stay Substantial Risk for: other
[2021-04-17 17:15] VITALS: BP 128/82; PULSE 75; RESP 18; TEMP 36.8; O2SAT 98
[2021-04-17] MEDS: traZODone HCL 50 MG TABLET PO (20:31)
[2021-04-18 06:00] VITALS: BP 109/64; PULSE 74; RESP 18; TEMP 36.5; O2SAT 100
[2021-04-18 07:30] LABS: Lithium 0.85 mmol/L (0.60-1.20)
[2021-04-18 07:36] LABS: Anion Gap 13 (12-20); Blood Urea Nitrogen 10 mg/dL (9-16); Carbon Dioxide 22 mmol/L (22-29); Chloride 108 mmol/L (96-108); Estimated Glomerular Filt Rate > 60; Potassium 4.5 mmol/L (3.3-5.1); Sodium 138 mmol/L (135-145)
[2021-04-18 08:00] LABS: TSH reflex Free T4 1.42 uIU/mL (0.32-4.0)
[2021-04-18] MEDS: Lithium Carbonate ER 450 MG TABLET.ER PO (08:08)
[2021-04-18] MEDS: Omeprazole 20 MG CAPSULE.DR PO (08:09)
[2021-04-18] MEDS: Magnesium Oxide 400 MG TABLET 800 MG PO (08:09)
[2021-04-18] MEDS: Montelukast Sodium 10 MG TABLET PO (08:09)
[2021-04-18 08:40] LABS: Syphilis Screen Nonreactive (Nonreactive)
--- NOTE | 2021-04-18 11:46 | PM.PSYDC ---
DS: Providers Provider Date of Service: 04/18/21 Date of admission: 04/11/21 14:10 Date of discharge: 04/18/21 Primary care physician: Juana Lucia NP Attending physician on admission: Grant Hankins Consults: 04/12/21 09:52 Consult to Hospitalist Routine Consulting Provider: Hospitalist Reason For Exam: admission physical Attending physician on discharge: Grant Hankins DS: Diagnosis Discharge Diagnosis (1) Bipolar 1 disorder: Status: Chronic DS: Medications Discharge Medications Home Medications: Previous Rx's Medication Instructions Recorded albuterol sulfate [Ventolin HFA] 2 puff INHALATION Q4H PRN 30 Days 04/18/21 #6.7 g lithium carbonate 450 mg PO BID 30 Days #60 tab 04/18/21 montelukast 10 mg PO DAILY 30 Days #30 tab 04/18/21 olanzapine 7.5 mg PO BID PRN 30 Days #60 tab 04/18/21 omeprazole 20 mg PO DAILY@0630 30 Days #30 cap 04/18/21 trazodone 50 mg PO BEDTIME PRN 30 Days #45 04/18/21 tab Discharge Plan Discharge Patient Disposition: Home, Self-Care Discharge Diagnosis: bipolar disorder, Type 1, recurrent, moderate in full remission Referrals: Virginia Joya (therapist) [Other] - 04/19/21 2:00 pm (Telehealth appointment. Please call the number above to provide the phone number you can be reached at) Elissa Soto (psychiatrist) [Other] - 04/20/21 2:00 pm (Telehealth appointment) Social Security Administration [Other] (Go to the website listed above or call the number to schedule an appointment for assistance filling out the application. Printed information and directions included with your discharge paperwork) Community Support Program (CSP) [Other] (If you are on [facility], you will be eligible for a CSP worker) [facility] [place] ([facility]) [Other] (Peer support center that you can call or go to for support/assistance accessing community resources) Juana Lucia NP [Primary Care Provider] - 05/11/21 2:50 pm (IN PERSON) Discharge Medications: New trazodone 50 mg Tablet 50 mg PO BEDTIME PRN (Reason: insomnia) 30 Days Qty: 45 RF: 0 olanzapine 7.5 mg Tablet 7.5 mg PO BID PRN (Reason: agitation/manic behaviors) 30 Days Qty: 60 RF: 0 lithium carbonate 450 mg Tablet Extended Release 450 mg PO BID 30 Days Qty: 60 RF: 0 omeprazole 20 mg Capsule,Delayed Release(Dr/Ec) 20 mg PO DAILY@0630 30 Days Qty: 30 RF: 0 montelukast 10 mg Tablet 10 mg PO DAILY 30 Days Qty: 30 RF: 0 albuterol sulfate [Ventolin HFA] 90 mcg/actuation Hfa Aerosol Inhaler 2 puff inhalation Q4H PRN (Reason: Shortness Of Breath) 30 Days Qty: 6.7 RF: 0 Discharge Orders: Discharge Order (Routine); Ordered 04/18/21 Ordered By: Grant Hankins Diet: regular diet Activity on Discharge: As tolerated Stand Alone Forms: Patient Portal Discharge page Care Plan Goals: Maintain mood and safe behaviors Take medications as prescribed Practice coping skills Continue with outpatient providers and reach out to them as needed Health Concerns: Mood instability and behaviors Asthma Gerd Plan of Treatment: Follow up with your PCP and psychiatric provider regarding above concerns Take medications as prescribed Assessment: Risk assessment at time of discharge: Patient has been observed closely by nursing and unit staff throughout admission; patient has not engaged in any behaviors that suggest dangerousness to self or others and has demonstrated appropriate behaviors and impulse control. Patient was interviewed prior to discharge and found to be fully oriented and without any SI or HI. Patient has insight and demonstrates good judgment in terms of wanting to pursue treatment. Patient is not in imminent risk of harm to self or others and has a safety plan that includes presenting to the closest ER or calling 911 if feeling unsafe. Patient Instructions: [facility] (By mouth), Bipolar Disorder (ED), [facility] Toxicity (DC) Discharge Date/Time: 04/18/21 14:00 Mental Status Exam Mental Status Exam Narrative: Pt is alert and oriented; behavior is cooperative, friendly and calm; patient is not in distress; dressed in casual attire with appropriately styled hair and good hygiene; mood is described as good and affect congruent, appropriate; eye contact appropriate; Speech is normal rate, volume and prosody, not pressured; no psychomotor agitation; thought process is organized. linear and goal directed. Thought content is on staying stable, on continuing treatment and otherwise pertinent to relevant topics; no grandiosity, delusional content or paranoid ideations; denies any SI/HI. There is no evidence of perceptual disturbance and she denies aVH. Patients insight and judgment appear intact. Data Data Completed and Pending Completed studies during hospitalization [Text1]: 04/11/21 04/12/21 04/12/21 Unknown 12:07 12:07 WBC 8.3 RBC 4.97 Hgb 15.4 Hct 45.8 MCV 92.2 MCH 31.0 MCHC 33.6 RDW 11.6 Plt Count 238 MPV 11.7 Immature Gran % (Auto) 0.2 Neut % (Auto) 61.7 Lymph % (Auto) 30.5 [place] % (Auto) 6.0 Eos % (Auto) 1.2 Baso % (Auto) 0.4 Lymph # (Auto) 2.5 [place] # (Auto) 0.5 Eos # (Auto) 0.1 Baso # (Auto) 0.0 Abs Immat Gran (auto) 0.02 Absolute Neuts (auto) 5.1 Absolute Nucleated RBC 0.000 Nucleated RBC % (auto) 0.0 Sodium 137 Potassium 4.1 Chloride 105 Carbon Dioxide 21 L Anion Gap 15 BUN 10 Creatinine 0.87 Estim Creat Clear Calc TNP Estimated GFR > 60 Total Bilirubin Direct Bilirubin AST ALT Alkaline Phosphatase Total Protein Albumin TSH Urine Test Urine Opiates Screen Not Detected Ur Barbiturates Screen Not Detected Ur Phencyclidine Scrn Not Detected Ur Amphetamines Screen Not Detected U Benzodiazepines Scrn Not Detected [facility] Urine Cocaine Screen Not Detected U Marijuana (THC) Screen POSITIVE H T.pallidum Ab (EIA) Chlam trachomat DNA PCR HIV 1&2 Ab/P24 Ag 4thGn N.gonorrhoeae DNA (PCR) 04/12/21 04/12/21 04/13/21 12:07 12:07 10:37 WBC RBC Hgb Hct MCV MCH MCHC RDW Plt Count MPV Immature Gran % (Auto) Neut % (Auto) Lymph % (Auto) [place] % (Auto) Eos % (Auto) Baso % (Auto) Lymph # (Auto) [place] # (Auto) Eos # (Auto) Baso # (Auto) Abs Immat Gran (auto) Absolute Neuts (auto) Absolute Nucleated RBC Nucleated RBC % (auto) Sodium Potassium Chloride Carbon Dioxide Anion Gap BUN Creatinine Estim Creat Clear Calc Estimated GFR Total Bilirubin 1.0 Direct Bilirubin 0.4 AST 15 ALT 11 Alkaline Phosphatase 70 Total Protein 8.7 H Albumin 5.1 H TSH Urine Test NEGATIVE Urine Opiates Screen Ur Barbiturates Screen Ur Phencyclidine Scrn Ur Amphetamines Screen U Benzodiazepines Scrn [facility] Urine Cocaine Screen U Marijuana (THC) Screen T.pallidum Ab (EIA) Chlam trachomat DNA PCR HIV 1&2 Ab/P24 Ag 4thGn Nonreactive N.gonorrhoeae DNA (PCR) 04/13/21 04/18/21 04/18/21 Unknown 06:56 06:56 WBC RBC Hgb Hct MCV MCH MCHC RDW Plt Count MPV Immature Gran % (Auto) Neut % (Auto) Lymph % (Auto) [place] % (Auto) Eos % (Auto) Baso % (Auto) Lymph # (Auto) [place] # (Auto) Eos # (Auto) Baso # (Auto) Abs Immat Gran (auto) Absolute Neuts (auto) Absolute Nucleated RBC Nucleated RBC % (auto) Sodium 138 Potassium 4.5 Chloride 108 Carbon Dioxide 22 Anion Gap 13 BUN 10 Creatinine Estim Creat Clear Calc Estimated GFR Total Bilirubin Direct Bilirubin AST ALT Alkaline Phosphatase Total Protein Albumin TSH 1.42 Urine Test Urine Opiates Screen Ur Barbiturates Screen Ur Phencyclidine Scrn Ur Amphetamines Screen U Benzodiazepines Scrn [facility] Urine Cocaine Screen U Marijuana (THC) Screen T.pallidum Ab (EIA) Nonreactive Chlam trachomat DNA PCR NOT DETECTED HIV 1&2 Ab/P24 Ag 4thGn N.gonorrhoeae DNA (PCR) NOT DETECTED 04/18/21 04/18/21 06:56 06:56 WBC RBC Hgb Hct MCV MCH MCHC RDW Plt Count MPV Immature Gran % (Auto) Neut % (Auto) Lymph % (Auto) [place] % (Auto) Eos % (Auto) Baso % (Auto) Lymph # (Auto) [place] # (Auto) Eos # (Auto) Baso # (Auto) Abs Immat Gran (auto) Absolute Neuts (auto) Absolute Nucleated RBC Nucleated RBC % (auto) Sodium Potassium Chloride Carbon Dioxide Anion Gap BUN Creatinine 0.88 Estim Creat Clear Calc TNP Estimated GFR > 60 Total Bilirubin Direct Bilirubin AST ALT Alkaline Phosphatase Total Protein Albumin TSH Urine Test Urine Opiates Screen Ur Barbiturates Screen Ur Phencyclidine Scrn Ur Amphetamines Screen U Benzodiazepines Scrn [facility] 0.85 Urine Cocaine Screen U Marijuana (THC) Screen T.pallidum Ab (EIA) Chlam trachomat DNA PCR HIV 1&2 Ab/P24 Ag 4thGn N.gonorrhoeae DNA (PCR) DS: Summary Hospital Course Hospital Course: Patient is a 26 yo female with hx of depression and manic episodes who presents for manic behavior. Patient signed a CV. On admission, she was hypomanic, but reportedly coming off a more severe manic episode which had been going on for at least 2-3 weeks and involved little to no sleep, hypersexual behavior, auditory hallucinations, some grandiosity and congregational preoccupation ( she also described a past history of episodes involving excessive spending up to 10,000 dollars and not being able to pay rent). Current episode may have been triggered by starting a trial of Paxil, which she discontinued, but patient has had such episodes prior to Paxil. Though hypomanic, patient was interruptible, reasonable and had insight to understand her diagnosis of bipolar disorder and need for medications. patient agreed to start lithium which was well tolerated and patient's symptoms started to decrease; she had also agreed to Olanzapine as a p.r.n., which she used frequently. Because patient used Olanzapine almost daily, telegraphic typewriter operator chief discussed that it is difficult to tell if both medications were needed to resolve donovan or if patient could be stable on monotherapy. Patient wanted to continue with Zyprexa for any moments of agitation or manic like symptoms and felt comfortable discussing how to manage this medication and her disorder with her outpatient provider. Patient also talked about anxiety symptoms including some mild-moderate compulsions to call her parents frequently and her history of hypersexuality/having multiple sexual partners and wanted to know whether these are due to manic episodes or have their own etiology; patient agrees that at the moment it is too difficult to untangle but will continue to work with outpatient providers, therapist in order to further assess. Patient continued to deny any suicidal or homicidal ideation during admission and demonstrated appropriate behaviors and impulse control on the unit. She was able to sleep through the night and felt her donovan had pretty much fully resolved. Patient put in a 3 day notice and reported feeling comfortable for discharge. 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 patient does not abuse drugs however had been smoking cannabis daily which was discussed and patient agrees to cut down and will consider discontinuing. On day of discharge, patient was in a good mood and future oriented, without any SI or HI or AVH; she continued to sleep well and remained without manic symptoms. She is not in imminent risk of self-harm or harm of others and does not meet criteria for involuntary commitment; patients request for discharge is honored. Midwife Practitioner discussed risks/side effects of medication regimen, including but not limited to, lithium and Zyprexa and topics such as to avoid NSAIDS, stay hydrated and to remain on control; patient communicated understanding of benefits, how to take, risks and side-effects of medications and wants to continue with regimen. Patient agrees that current doses seem appropriate and denies medication side-effects. Patient agrees to reach out to outpatient provider with any medications concerns. Labs WNL Time spent discussing smoking cessation with patient: 3 to 10 minutes Time Spent with Patient Time attestation: Total time spent providing and/or coordinating discharge services:
== END 2021-04-18 14:00 | disposition home or self-care (01) | DRG 753 ==
PROVIDERS: Psychiatry & Neurology Psychiatry; Admitting Provider Psychiatry & Neurology Psychiatry; PCP Nurse Practitioner Family; Visit Provider Psychiatry & Neurology Psychiatry
DX: F31.9 Bipolar disorder, unspecified (principal); Z88.2 Allergy status to sulfonamides; Z79.899 Other long term (current) drug therapy
CPT/HCPCS: 36415; 80051; 80076; 80178; 80307; 81025; 82565; 84443; 84520; 85025; 86780; 87389; 87491; 87591

== ENCOUNTER 2023-06-11 17:35 | Emergency (ER) | payer OTHER, SELFPAY ==
--- NOTE | 2023-06-11 17:44 | ED_ITS ---
HPI - Psych General Chief Complaint: Psychiatric Symptoms Stated Complaint: BHN sent pt here for crisis Time Seen by Provider: 06/11/23 17:44 Source: patient and EMS Mode of arrival: EMS Limitations: no limitations History of Present Illness HPI Narrative: Patient is a 28-year-old female who presents emergency department via EMS. She is coming from [facility], a respite Center [address] [place] [address]. She was seen in the [facility] and was made in inpatient bed search. Patient reports that on 05/20/2023 she stopped taking her trial are and Lexapro at the recommendation of her psychiatric provider due to her status. She is reportedly 7 weeks , with last menstrual period 04/21/2023, she is being followed by [facility], and has an ultrasound scheduled for July 08. Patient reports to me that her psychiatric provider; hammad Antunez had referred her to a specialist in the [place] area with whom she had an appointment with via telehealth for recommendations about medication management during . Patient states that their recommendation was to initiate Seroquel, however this was reportedly not written in their note, therefore she has not been started on Seroquel or any other medications at this time. She has been having increasing suicidal ideations but she reports them as being passive thoughts, without intention to act on them. But she does state that she feels that she is in ?the worst case scenario? and would like to begin taking her Vraylar and Lexapro again to help improve her mood. She has been at the [facility] for the past 2 days by her report and does not feel that this alone is helping. Related Data Home Medications Medication Instructions Recorded Confirmed folic acid 1 mg tablet 4 mg PO DAILY 06/11/23 06/11/23 vitamin no.115-iron 29 1 tab PO DAILY 06/11/23 06/11/23 mg-folic acid 1 mg chewable tablet ( 19) Allergies Allergy/AdvReac Type Severity Reaction Status Date / Time Sulfa (Sulfonamide Allergy Unknown DENIES Unverified 06/29/20 19:35 Antibiotics) [SULFA (SULFONAMIDE ANTIBIOTICS)] Review of Systems Review of Systems: Constitutional : No Fever, No Chills ENT/Mouth : No Ear Pain, No Nasal Congestion, No sore throat Eyes: No Eye Pain, No Swelling, No Redness Cardiovascular : No Chest Pain, No SOB Respiratory : No Cough, No Sputum, No Dyspnea Gastrointestinal : No Nausea, No Vomiting, No Diarrhea, No Hematochezia, No Melena Genitourinary : No Dysuria, No Urinary Frequency, No Hematuria Musculoskeletal : No Myalgias Skin : No Skin Lesions, No rash Neuro : No Weakness, No Numbness, No Paresthesias, No Dizziness, No Headache Psych : positive Anxiety, positive Depression, positive SI Heme/Lymph: No Lymphadenopathy Endocrine : No Polyuria, No Polydipsia ? Yes all other systems are reviewed and are negative REPLACED BY [facility] Past Medical History Attestation statement: The following information was validated with the patient. Source: old records reviewed Medical History Asthma Bipolar 1 disorder Routine check-up Social History Social History Household Members: Family Housing: House Do you presently have visiting nurse or other home services: No Patient Tobacco Use Status: Never used Tobacco Second Hand Smoke Exposure: No Substance Use Type: Marijuana Advance Directives: No Advance Directives Information Provided: Yes service: No Sexual orientation: did not discuss Physical Exam Vital Signs: Vital Signs: Last Vital Signs Temp 97.1 F 06/11/23 18:06 Pulse 106 H 06/11/23 18:06 Resp 18 06/11/23 18:06 BP 156/86 H 06/11/23 18:06 Pulse Ox 100 06/11/23 18:06 O2 Del Method Room Air 06/11/23 18:06 BMI result Body Mass Index 31.9 Appearance: Alert.?Oriented to person, place and time. No acute distress.?Normal affect. Eyes: Pupils equal, round and reactive to light.? ENT: Pharynx normal.?? Neck: Normal inspection.? Neck supple.?? CVS: Heart sounds normal. Normal heart rate and rhythm.? Pulses normal.?? Respiratory: No respiratory distress.? Lung sounds clear to auscultation bilaterally?? Abdomen: Soft and non-tender. Normoactive bowel sounds. ? Skin: Skin warm and dry.? Normal skin color.? Extremities: No lower extremity edema.? Neuro: Moves all extremities spontaneously. Sensation intact bilaterally. CN II- XII intact. No focal neuro deficits. Ambulates with normal steady gait. Medications Administered Discontinued Medications Generic Name Dose Route Start Last Admin Trade Name Freq PRN Reason Stop Dose Admin Diphenhydramine HCl 50 mg 06/11/23 20:50 06/11/23 21:00 Diphenhydramine Hcl 25 Mg Capsule PO 06/11/23 20:51 50 mg ONCE ONE Administration Medical Decision Making Medical Decision Making [facility] Narrative: Patient is a 28-year-old female with past medical history of asthma, bipolar disorder, who is currently 7 weeks presenting to emergency department on a Section 12 for suicidal ideations in the setting of recently having stopped her medications as per HPI. At the time of my examination she is calm, cooperative, expressing concern that she would like to begin taking her past medications again as she feels that this would be most beneficial for her. She was seen in the community by [facility] and has been made an inpatient bed search, she is unable to go back to the [facility] at this time. She is agreeable with this plan of care. Will refer to the care team for assistance with bed search. Basic labs to be obtained for medical clearance. Differential Diagnosis Differential Diagnoses: The differential diagnosis associated with the presentation includes (Bipolar disorder, psychosis, suicidal ideation) Admission/Observation Consideration of admission/observation: Escalation of care including admission/observation considered (Patient placed in physician observation so that bed search can ensue; inpatient) Consult Healthcare Provider Management of the patient was discussed with: Behavioral Health Provider Lab Data [facility] Lab Attestation statement: I reviewed the patient's lab results. Urinalysis is without evidence of infection. 06/11/23 21:26 06/11/23 19:34 Labs: Lab Results 06/11/23 06/11/23 06/11/23 Range/Units 18:34 18:34 18:34 WBC (4.8-10.8) X10*3/uL RBC (4.20-5.50) X10*6/uL Hgb (12.0-16.0) g/dl Hct (37.0-47.0) % MCV (80.0-98.0) fL MCH (27.0-33.0) pg MCHC (31.0-35.0) g/dl RDW (11.0-16.0) % Plt Count (160-400) X10*3/uL MPV (9.4-12.3) fL Immature Gran % (Auto) (0.0-0.4) % Neut % (Auto) (45-73) % Lymph % (Auto) (20-40) % [place] % (Auto) (2-11) % Eos % (Auto) (0-4) % Baso % (Auto) (0-2) % Lymph # (Auto) (1.2-4.9) X10*3/uL [place] # (Auto) (0.1-1.2) X10*3/uL Eos # (Auto) (0.0-0.4) X10*3/uL Baso # (Auto) (0.0-0.2) X10*3/uL Abs Immat Gran (auto) (0.00-0.03) X10*3/uL Absolute Neuts (auto) (2.0-8.3) x10*3/uL Absolute Nucleated RBC (0.0-0.012) X10*3/uL Nucleated RBC % (auto) (0.0-0.2) /100WBC Sodium (135-145) mmol/L Potassium (3.3-5.1) mmol/L Chloride (96-108) mmol/L Carbon Dioxide (22-29) mmol/L Anion Gap (12-20) BUN (9-16) mg/dL Creatinine (0.5-1.4) mg/dL Estim Creat Clear Calc Estimated GFR Random Glucose (60-115) mg/dL Calcium (8.4-10.2) mg/dL Total Bilirubin (0.0-1.0) mg/dL AST (5-31) U/L ALT (0-31) U/L Alkaline Phosphatase (39-117) U/L Total Protein (6.5-8.0) g/dL Albumin (3.5-5.0) g/dL Urine Color Yellow Urine Appearance Clear Urine pH 6.0 (5.0-9.0) Ur Specific [place] 1.025 (1.005-1.025) Urine Protein Negative (Neg-Trace) mg/dL Urine Glucose (UA) Negative (Negative) mg/dL Urine Ketones Negative (Negative) mg/dL Urine Blood Negative (Negative) Urine Nitrite Negative (Negative) Ur Leukocyte Esterase Negative (Negative) Urine RBC 0-2 (0-2) /HPF Urine WBC 0-5 (0-5) /HPF Ur Squamous Epith Cells 6-10 (0-2) /HPF Urine Bacteria 1+ (None Seen) Hyaline Casts 0-2 (0-2) /LPF Urine Test POSITIVE H (NEGATIVE) Salicylates (15-30) mg/dL Urine Opiates Screen Not Detected (Not Detect) Urine Fentanyl Screen Not Detected (Not Detect) Acetaminophen (<30) mcg/mL Ur Barbiturates Screen Not Detected (Not Detect) Ur Phencyclidine Scrn Not Detected (Not Detect) Ur Amphetamines Screen Not Detected (Not Detect) U Benzodiazepines Scrn Not Detected (Not Detect) Urine Cocaine Screen Not Detected (Not Detect) U Marijuana (THC) Screen Not Detected (Not Detect) Ethyl Alcohol mg/dL COVID-19 (FRANSISCO) (Negative) COVID-19 Clin Com 06/11/23 06/11/23 06/11/23 Range/Units 19:34 19:34 21:00 WBC (4.8-10.8) X10*3/uL RBC (4.20-5.50) X10*6/uL Hgb (12.0-16.0) g/dl Hct (37.0-47.0) % MCV (80.0-98.0) fL MCH (27.0-33.0) pg MCHC (31.0-35.0) g/dl RDW (11.0-16.0) % Plt Count (160-400) X10*3/uL MPV (9.4-12.3) fL Immature Gran % (Auto) (0.0-0.4) % Neut % (Auto) (45-73) % Lymph % (Auto) (20-40) % [place] % (Auto) (2-11) % Eos % (Auto) (0-4) % Baso % (Auto) (0-2) % Lymph # (Auto) (1.2-4.9) X10*3/uL [place] # (Auto) (0.1-1.2) X10*3/uL Eos # (Auto) (0.0-0.4) X10*3/uL Baso # (Auto) (0.0-0.2) X10*3/uL Abs Immat Gran (auto) (0.00-0.03) X10*3/uL Absolute Neuts (auto) (2.0-8.3) x10*3/uL Absolute Nucleated RBC (0.0-0.012) X10*3/uL Nucleated RBC % (auto) (0.0-0.2) /100WBC Sodium 138 (135-145) mmol/L Potassium 3.8 (3.3-5.1) mmol/L Chloride 105 (96-108) mmol/L Carbon Dioxide 23 (22-29) mmol/L Anion Gap 14 (12-20) BUN 8 L (9-16) mg/dL Creatinine 0.75 (0.5-1.4) mg/dL Estim Creat Clear Calc 114.0 Estimated GFR > 60 Random Glucose 99 (60-115) mg/dL Calcium 9.2 (8.4-10.2) mg/dL Total Bilirubin 0.3 (0.0-1.0) mg/dL AST 10 (5-31) U/L ALT 6 (0-31) U/L Alkaline Phosphatase 56 (39-117) U/L Total Protein 7.3 (6.5-8.0) g/dL Albumin 4.0 (3.5-5.0) g/dL Urine Color Urine Appearance Urine pH (5.0-9.0) Ur Specific [place] (1.005-1.025) Urine Protein (Neg-Trace) mg/dL Urine Glucose (UA) (Negative) mg/dL Urine Ketones (Negative) mg/dL Urine Blood (Negative) Urine Nitrite (Negative) Ur Leukocyte Esterase (Negative) Urine RBC (0-2) /HPF Urine WBC (0-5) /HPF Ur Squamous Epith Cells (0-2) /HPF Urine Bacteria (None Seen) Hyaline Casts (0-2) /LPF Urine Test (NEGATIVE) Salicylates < 5.0 L (15-30) mg/dL Urine Opiates Screen (Not Detect) Urine Fentanyl Screen (Not Detect) Acetaminophen < 17 (<30) mcg/mL Ur Barbiturates Screen (Not Detect) Ur Phencyclidine Scrn (Not Detect) Ur Amphetamines Screen (Not Detect) U Benzodiazepines Scrn (Not Detect) Urine Cocaine Screen (Not Detect) U Marijuana (THC) Screen (Not Detect) Ethyl Alcohol < 10 mg/dL COVID-19 (FRANSISCO) Negative (Negative) COVID-19 Clin Com See Note 06/11/23 Range/Units 21:26 WBC 15.4 H (4.8-10.8) X10*3/uL RBC 4.62 (4.20-5.50) X10*6/uL Hgb 14.4 (12.0-16.0) g/dl Hct 40.8 (37.0-47.0) % MCV 88.3 (80.0-98.0) fL MCH 31.2 (27.0-33.0) pg MCHC 35.3 H (31.0-35.0) g/dl RDW 11.8 (11.0-16.0) % Plt Count 257 (160-400) X10*3/uL MPV 10.8 (9.4-12.3) fL Immature Gran % (Auto) 0.5 H (0.0-0.4) % Neut % (Auto) 76.8 H (45-73) % Lymph % (Auto) 14.0 L (20-40) % [place] % (Auto) 7.2 (2-11) % Eos % (Auto) 1.2 (0-4) % Baso % (Auto) 0.3 (0-2) % Lymph # (Auto) 2.2 (1.2-4.9) X10*3/uL [place] # (Auto) 1.1 (0.1-1.2) X10*3/uL Eos # (Auto) 0.2 (0.0-0.4) X10*3/uL Baso # (Auto) 0.1 (0.0-0.2) X10*3/uL Abs Immat Gran (auto) 0.08 H (0.00-0.03) X10*3/uL Absolute Neuts (auto) 11.8 H (2.0-8.3) x10*3/uL Absolute Nucleated RBC 0.000 (0.0-0.012) X10*3/uL Nucleated RBC % (auto) 0.0 (0.0-0.2) /100WBC Sodium (135-145) mmol/L Potassium (3.3-5.1) mmol/L Chloride (96-108) mmol/L Carbon Dioxide (22-29) mmol/L Anion Gap (12-20) BUN (9-16) mg/dL Creatinine (0.5-1.4) mg/dL Estim Creat Clear Calc Estimated GFR Random Glucose (60-115) mg/dL Calcium (8.4-10.2) mg/dL Total Bilirubin (0.0-1.0) mg/dL AST (5-31) U/L ALT (0-31) U/L Alkaline Phosphatase (39-117) U/L Total Protein (6.5-8.0) g/dL Albumin (3.5-5.0) g/dL Urine Color Urine Appearance Urine pH (5.0-9.0) Ur Specific [place] (1.005-1.025) Urine Protein (Neg-Trace) mg/dL Urine Glucose (UA) (Negative) mg/dL Urine Ketones (Negative) mg/dL Urine Blood (Negative) Urine Nitrite (Negative) Ur Leukocyte Esterase (Negative) Urine RBC (0-2) /HPF Urine WBC (0-5) /HPF Ur Squamous Epith Cells (0-2) /HPF Urine Bacteria (None Seen) Hyaline Casts (0-2) /LPF Urine Test (NEGATIVE) Salicylates (15-30) mg/dL Urine Opiates Screen (Not Detect) Urine Fentanyl Screen (Not Detect) Acetaminophen (<30) mcg/mL Ur Barbiturates Screen (Not Detect) Ur Phencyclidine Scrn (Not Detect) Ur Amphetamines Screen (Not Detect) U Benzodiazepines Scrn (Not Detect) Urine Cocaine Screen (Not Detect) U Marijuana (THC) Screen (Not Detect) Ethyl Alcohol mg/dL COVID-19 (FRANSISCO) (Negative) COVID-19 Clin Com Independent Historian Clinical information obtained from an independent historian. History obtained from or confirmed by: EMS External Record Review External record reviewed: Outpatient record Discharge Plan Discharge Clinical Impression: Bipolar 1 disorder, Depression Patient Disposition: Still a Patient Prescriptions: No Action folic acid 1 mg tablet 4 mg PO DAILY 19 29 mg iron- 1 mg tablet,chewable 1 tab PO DAILY Interventions: [place]-Suicide Risk Severity Scale Last Done: 06/11/23 18:25
[2023-06-11 18:06] VITALS: BP 156/86; PULSE 106; RESP 18; TEMP 36.2; O2SAT 100; BMI 31.9
--- NOTE | 2023-06-11 18:30 | PC.NURSE ---
Bonnie arrived as a voluntary admission and reports she has been struggling since finding out she is and stopping her psychiatric medication including Vraylar and Lexapro. Bonnie reports she has only been taking a vitamin and folic acid. Calm and cooperative. Bonnie does endorse worsening depression but denies SI/HI. Bonnie was changed into hospital clothing and allowed her belongings to be locked up.
[2023-06-11 18:54] LABS: Appearance Urine Clear; Color Urine Yellow; Glucose Urine UA Negative (Negative); Leukocyte Esterase Urine Negative (Negative); Nitrite Urine Negative (Negative); Specific Gravity - Urine 1.025 (1.005-1.025); Urine Blood Negative (Negative); Urine Ketones Negative (Negative); Urine Protein Negative (Neg-Trace)
[2023-06-11 18:56] LABS: UPreg QC Valid YES; Urine Pregnancy POSITIVE (NEGATIVE)
[2023-06-11 18:59] LABS: Bacteria Urine 1+ (None Seen); Hyaline Casts Urine 0-2 /LPF (0-2); RBC Urine 0-2 /HPF (0-2); WBC Urine 0-5 /HPF (0-5)
[2023-06-11 19:02] LABS: Amphetamine Screen Urine Not Detected (Not Detect); Barbiturates, Urine Not Detected (Not Detect); Benzodiazepines Screen Urine Not Detected (Not Detect); Cannabinoid Screen Urine Not Detected (Not Detect); Cocaine Screen Urine Not Detected (Not Detect); Fentanyl, urine Not Detected (Not Detect); Opiate Screen Urine Not Detected (Not Detect); Phencyclidine Screen Urine Not Detected (Not Detect)
[2023-06-11 20:32] LABS: Alanine Aminotransferase 6 U/L (0-31); Alkaline Phosphatase 56 U/L (39-117); Anion Gap 14 (12-20); Aspartate Amino Transferase 10 U/L (5-31); Bilirubin Total 0.3 mg/dL (0.0-1.0); Blood Urea Nitrogen 8 mg/dL (9-16); Calcium 9.2 mg/dL (8.4-10.2); Carbon Dioxide 23 mmol/L (22-29); Chloride 105 mmol/L (96-108); Estimated Glomerular Filt Rate > 60; Ethanol < 10 mg/dL; Glucose Random 99 mg/dL (60-115); Potassium 3.8 mmol/L (3.3-5.1); Sodium 138 mmol/L (135-145); Total Protein 7.3 g/dL (6.5-8.0)
[2023-06-11 20:34] LABS: Acetaminophen LAB < 17 mcg/mL (<30); Salicylate < 5.0 mg/dL (15-30)
[2023-06-11] MEDS: diphenhydrAMINE HCL 25 MG CAPSULE 50 MG PO (21:00)
[2023-06-11 21:25] LABS: COVID-19 Test Negative (Negative); IDNOW Serial# BCCEAD1C
[2023-06-11 21:32] LABS: Basophils Absolute Auto 0.1 X10*3/uL (0.0-0.2); Basophils Percent Auto 0.3 % (0-2); Eosinophils Absolute Auto 0.2 X10*3/uL (0.0-0.4); Eosinophils Percent Auto 1.2 % (0-4); Hematocrit 40.8 % (37.0-47.0); Hemoglobin 14.4 g/dl (12.0-16.0); Imm Gran Abs Auto 0.08 X10*3/uL (0.00-0.03); Imm Gran Pct Auto 0.5 % (0.0-0.4); Lymphocytes Absolute Auto 2.2 X10*3/uL (1.2-4.9); Mean Corpuscular HGB Conc 35.3 g/dl (31.0-35.0); Mean Corpuscular Hemoglobin 31.2 pg (27.0-33.0); Mean Corpuscular Volume 88.3 fL (80.0-98.0); Mean Platelet Volume 10.8 fL (9.4-12.3); Monocytes Absolute Auto 1.1 X10*3/uL (0.1-1.2); Monocytes Percent Auto 7.2 % (2-11); Neutrophils Absolute Auto 11.8 x10*3/uL (2.0-8.3); Neutrophils Percent Auto 76.8 % (45-73); Platelet Count 257 X10*3/uL (160-400); Red Blood Count 4.62 X10*6/uL (4.20-5.50); Red Cell Distribution Width 11.8 % (11.0-16.0); White Blood Count 15.4 X10*3/uL (4.8-10.8)
--- NOTE | 2023-06-12 05:54 | PC.NURSE ---
Patient slept through the night, no distress observed/reported, behavior non concerning, medication compliant, Benadryl 50 mg administered at 2100 with + effect, labs completed/resulted, disposition per [facility] is section-12 inpatient bed search, will continue to monitor.
[2023-06-12] MEDS: Multivitamin TABLET 1 TAB PO (09:15)
[2023-06-12] MEDS: Folic Acid 1 MG TABLET 4 MG PO (09:15)
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
[2023-06-12] MEDS: Cariprazine HCl 3 MG CAPSULE PO (12:18)
== END 2023-06-12 12:38 | disposition home or self-care (01) ==
PROVIDERS: Nurse Practitioner Family; Emergency Provider Emergency Medicine
DX: O99.341 Other mental disorders complicating pregnancy, first trimester (principal); F31.32 Bipolar disorder, current episode depressed, moderate; R45.851 Suicidal ideations; Z3A.01 Less than 8 weeks gestation of pregnancy; D72.829 Elevated white blood cell count, unspecified; Z20.822 Contact with and (suspected) exposure to COVID-19; Z79.899 Other long term (current) drug therapy
CPT/HCPCS: 36415; 80053; 80143; 80179; 80307; 81001; 81025; 85025; 87635; 99284; S9485

== ENCOUNTER → 2023-06-11 18:24 | Outpatient (BNV) | payer OTHER, SELFPAY | PROVIDERS: Emergency Provider Emergency Medicine; Visit Provider Social Worker | DX: F31.32 Bipolar disorder, current episode depressed, moderate (principal) | CPT/HCPCS: 99284 ==

== ENCOUNTER 2024-07-26 16:55 | Inpatient (IN) | payer OTHER, SELFPAY ==
--- NOTE | 2024-07-26 17:20 | ECG_ITS ---
Test Reason : MEDICAL CLEARANCE Blood Pressure : / mmHG Vent. Rate : 069 BPM Atrial Rate : 069 BPM P-R Int : 164 ms QRS Dur : 080 ms QT Int : 374 ms P-R-T Axes : 007 040 -12 degrees QTc Int : 400 ms Normal sinus rhythm Nonspecific T wave abnormality Abnormal ECG No previous ECGs available Referred By: Victoriano Quintanilla Electronically Signed By:CHAPITO DÍAZ
--- NOTE | 2024-07-26 17:24 | ED_ITS ---
HPI - General Adult General Chief complaint: Psychiatric Symptoms Stated complaint: si, attempted to jump off bridge Time Seen by Provider: 07/26/24 17:11 History of Present Illness ED Provider: Dwight HOLLAND narrative: 29-year-old female with past medical history of bipolar disorder presenting for depression. Patient is approximately 9 months she states that she has been having a hard time with parenting. She states she loves her son however she has been feeling mentally depressed as of late. She denies SI/HI however she did call 911 today due to how depressed she was feeling. She did not make any attempts to hurt herself and has no physical complaints. Triage notes states that patient attempted to jump off bridge however patient declines this stating that is not true. She denies experiencing SI earlier today Related Data Home Medications ?Medication ?Instructions ?Recorded ?Confirmed folic acid 1 mg tablet 4 mg PO DAILY 06/11/23 06/11/23 vitamin no.115-iron 29 1 tab PO DAILY 06/11/23 06/11/23 mg-folic acid 1 mg chewable tablet ( 19) Previous Rx's ?Medication ?Instructions ?Recorded cariprazine 3 mg capsule (Vraylar) 3 mg PO DAILY #14 caps 06/12/23 escitalopram oxalate 5 mg tablet 5 mg PO DAILY #14 tabs 06/12/23 (Lexapro) Allergies Allergy/AdvReac Type Severity Reaction Status Date / Time Sulfa (Sulfonamide Allergy Unknown DENIES Unverified 07/26/24 17:33 Antibiotics) [SULFA (SULFONAMIDE ANTIBIOTICS)] amoxicillin Allergy Unknown Verified 07/26/24 17:33 Penicillins Allergy Unknown Verified 07/26/24 17:33 Review of Systems 2 Review of Systems: Patient endorses feeling depressed Patient denies head pain, neck pain, chest pain, shortness of breath, abdominal pain, nausea, vomiting, urinary symptoms, diarrhea, fevers, chills Yes all other systems are reviewed and are negative PMFSH Past Medical History Medical History Asthma Bipolar 1 disorder Routine check-up Social History Social History Household Members: Family Housing: House Do you presently have visiting nurse or other home services: No Alcohol intake: current Patient Tobacco Use Status: Never used Tobacco Smoked in Last 30 Days: No Second Hand Smoke Exposure: No Use of substances other than those prescribed or required for medical reasons: Yes Substance Use Type: Marijuana Advance Directives: No Advance Directives Information Provided: No Patient : No service: No Sexual orientation: did not discuss Physical Exam ED Vital Signs: Vital Signs - 24 hr 07/26/24 17:52 07/26/24 19:48 Temperature 98.0 F 98.6 F Pulse Rate 73 90 Respiratory Rate 16 18 Blood Pressure 119/73 127/79 Pulse Oximetry 98 99 Oxygen Delivery Method Room Air Room Air BMI result Body Mass Index 29.7 Patient is tearful however well-appearing Lungs clear to auscultation bilaterally; normal S1-S2 regular rate rhythm; abdomen is soft nontender nondistended; no focal neurologic deficits; no external signs of trauma Medical Decision Making Medical Decision Making MDM Narrative: This is a 29-year-old female with past medical history of bipolar disorder presenting for depression. I am concerned for depression/mood disorder however there is currently no SI or HI - lab work and EKG ordered - consult care team placed - lab work notable for stable H&H, BMP within normal limits - care team evaluated pt and confirmed that she was suicidal earlier today and did express wanting to jump off a bridge; recommending admission - pt confirmed to have SI prior to ED arrival - pt placed on section 12 and is still a patient here Differential Diagnosis Differential Diagnoses: The differential diagnosis associated with the presentation includes Depression/ depression, mood disorder, psychiatric,, suicide ideation Lab Data 07/26/24 19:16 07/26/24 19:16 Labs: Lab Results 07/26/24 Range/Units 19:16 WBC 9.4 (4.8-10.8) X10*3/uL RBC 4.48 (4.20-5.50) X10*6/uL Hgb 13.3 (12.0-16.0) g/dl Hct 39.0 (37.0-47.0) % MCV 87.1 (80.0-98.0) fL MCH 29.7 (27.0-33.0) pg MCHC 34.1 (31.0-35.0) g/dl RDW 12.9 (11.0-16.0) % Plt Count 271 (160-400) X10*3/uL MPV 10.8 (9.4-12.3) fL Immature Gran % (Auto) 0.3 (0.0-0.4) % Neut % (Auto) 69.2 (45-73) % Lymph % (Auto) 21.2 (20-40) % [place] % (Auto) 6.9 (2-11) % Eos % (Auto) 1.8 (0-4) % Baso % (Auto) 0.6 (0-2) % Lymph # (Auto) 2.0 (1.2-4.9) X10*3/uL [place] # (Auto) 0.7 (0.1-1.2) X10*3/uL Eos # (Auto) 0.2 (0.0-0.4) X10*3/uL Baso # (Auto) 0.1 (0.0-0.2) X10*3/uL Abs Immat Gran (auto) 0.03 (0.00-0.03) X10*3/uL Absolute Neuts (auto) 6.5 (2.0-8.3) x10*3/uL Absolute Nucleated RBC 0.000 (0.0-0.012) X10*3/uL Nucleated RBC % (auto) 0.0 (0.0-0.2) /100WBC Sodium 140 (135-145) mmol/L Potassium 4.3 (3.3-5.1) mmol/L Chloride 106 (96-108) mmol/L Carbon Dioxide 25 (22-29) mmol/L Anion Gap 13 (12-20) BUN 8 L (9-16) mg/dL Creatinine 0.76 (0.5-1.4) mg/dL Estim Creat Clear Calc 107.6 Estimated GFR > 60 Random Glucose 99 (60-115) mg/dL Calcium 9.3 (8.4-10.2) mg/dL Salicylates < 5.0 L (15-30) mg/dL Acetaminophen < 3 (<30) mcg/mL Ethyl Alcohol < 10 mg/dL Discharge Plan Discharge Clinical Impression: Depression, Suicidal ideations Patient Disposition: Still a Patient Prescriptions: No Action folic acid 1 mg tablet 4 mg PO DAILY 19 29 mg iron- 1 mg tablet,chewable 1 tab PO DAILY Vraylar 3 mg capsule 3 mg PO DAILY Qty: 14 0RF escitalopram oxalate [Lexapro] 5 mg tablet 5 mg PO DAILY Qty: 14 0RF Interventions: Barrow-Suicide Risk Severity Scale Last Done: 07/26/24 17:52 Print Language: Kittitian
[2024-07-26 17:28] VITALS: BP 150/108; PULSE 102; O2SAT 98; BMI 29.7
--- NOTE | 2024-07-26 17:45 | MHC.EDTECH ---
PT belongings locked in sallyport closet C4
[2024-07-26 17:52] VITALS: BP 119/73; PULSE 73; RESP 16; TEMP 36.7; O2SAT 98
--- NOTE | 2024-07-26 18:13 | PC.NURSE ---
pt reports that she was not at a bridge, as was reported by EMS. She states that she was at a congregation, was feeling depressed and on and off had SI. She called PD and came tot he ED on her own. She cites post depression as a factor. AOx4, ambulatory. calm and cooperative with care. pt changed to hospital attire. 1:1 at bedside.
--- NOTE | 2024-07-26 18:21 | MHC.EDTECH ---
PAO labs *2 LETA Kidd aware
--- NOTE | 2024-07-26 18:47 | PC.NURSE ---
Patient is a difficult stick. Unable to find a vein to obtain labwork, even with vein finder. Called reel stripper, awaiting arrival and attempt to obtain labs. Pt sitting upright eating dinner at this time (sandwich, potato chips, drink). Sitter also at bedside.
[2024-07-26 19:20] LABS: MANUAL DIFF FLAG NO
[2024-07-26 19:25] LABS: Basophils Absolute Auto 0.1 X10*3/uL (0.0-0.2); Basophils Percent Auto 0.6 % (0-2); Eosinophils Absolute Auto 0.2 X10*3/uL (0.0-0.4); Eosinophils Percent Auto 1.8 % (0-4); Hemoglobin 13.3 g/dl (12.0-16.0); Imm Gran Abs Auto 0.03 X10*3/uL (0.00-0.03); Imm Gran Pct Auto 0.3 % (0.0-0.4); Lymphocytes Percent Auto 21.2 % (20-40); Mean Corpuscular HGB Conc 34.1 g/dl (31.0-35.0); Mean Corpuscular Hemoglobin 29.7 pg (27.0-33.0); Mean Corpuscular Volume 87.1 fL (80.0-98.0); Mean Platelet Volume 10.8 fL (9.4-12.3); Monocytes Absolute Auto 0.7 X10*3/uL (0.1-1.2); Monocytes Percent Auto 6.9 % (2-11); Neutrophils Absolute Auto 6.5 x10*3/uL (2.0-8.3); Neutrophils Percent Auto 69.2 % (45-73); Platelet Count 271 X10*3/uL (160-400); Red Blood Count 4.48 X10*6/uL (4.20-5.50); Red Cell Distribution Width 12.9 % (11.0-16.0); White Blood Count 9.4 X10*3/uL (4.8-10.8)
[2024-07-26 19:42] LABS: Acetaminophen LAB < 3 mcg/mL (<30); Anion Gap 13 (12-20); Blood Urea Nitrogen 8 mg/dL (9-16); Calcium 9.3 mg/dL (8.4-10.2); Carbon Dioxide 25 mmol/L (22-29); Chloride 106 mmol/L (96-108); Creatinine Clr Calc Pharmacy 107.6; Estimated Glomerular Filt Rate > 60; Ethanol < 10 mg/dL; Glucose Random 99 mg/dL (60-115); Potassium 4.3 mmol/L (3.3-5.1); Salicylate < 5.0 mg/dL (15-30); Sodium 140 mmol/L (135-145)
[2024-07-26 19:48] VITALS: BP 127/79; PULSE 90; RESP 18; TEMP 37; O2SAT 99
[2024-07-26] MEDS: droPERidol 5 MG/2 ML VIAL 2.5 MG IM (22:02)
--- NOTE | 2024-07-26 22:04 | PC.NURSE ---
pt reporting anxiety/agitation d/t being in [place] and main ed rather than on m5. pt states does not take any meds at home. requested med to help with sx. made aware. pt in agreement for IM injection of droperidol. pt tearful. after medicated pt laid to L. side and closed eyes. resp even and unlabored. 1:1 sitter at bedside.
[2024-07-27 06:30] VITALS: BP 123/71; PULSE 85; RESP 16; TEMP 36.2; O2SAT 96
[2024-07-27 07:25] LABS: Appearance Urine Cloudy; Color Urine Yellow; Glucose Urine UA Negative (Negative); Leukocyte Esterase Urine Small (1+) (Negative); Nitrite Urine Negative (Negative); Specific Gravity - Urine 1.015 (1.005-1.025); UMIC TRIGGER UACC YES; Urine Blood Moderate (2+) (Negative); Urine Ketones Negative (Negative); Urine Protein Negative (Neg-Trace)
[2024-07-27 07:27] LABS: UPreg QC Valid YES; Urine Pregnancy NEGATIVE (NEGATIVE)
[2024-07-27 07:39] LABS: Bacteria Urine 4+ (None Seen); RBC Urine 0-2 /HPF (0-2); UACC Culture Trigger YES; WBC Urine 21-50 /HPF (0-5)
[2024-07-27] MEDS: LORazepam 1 MG TABLET 2 MG PO ×2 (09:55→22:04)
[2024-07-27 10:47] LABS: Amphetamine Screen Urine Not Detected (Not Detect); Barbiturates, Urine Not Detected (Not Detect); Benzodiazepines Screen Urine Not Detected (Not Detect); Buprenorphine Scr Not Detected (Not Detect); Cannabinoid Screen Urine POSITIVE (Not Detect); Cocaine Screen Urine Not Detected (Not Detect); Fentanyl, urine Not Detected (Not Detect); Methadone Screen, Urine Not Detected (Not Detect); Opiate Screen Urine Not Detected (Not Detect); Oxycodone Screen Urine Not Detected (Not Detect); Phencyclidine Screen Urine Not Detected (Not Detect)
[2024-07-27] MEDS: Escitalopram Oxalate 5 MG TABLET PO (12:27)
[2024-07-27] MEDS: Cariprazine HCl 3 MG CAPSULE PO (12:27)
[2024-07-27 16:38] VITALS: BMI 28.1
[2024-07-27 17:24] VITALS: BP 123/82; PULSE 83; RESP 16; TEMP 36.9; O2SAT 98
--- NOTE | 2024-07-27 17:53 | PC.ADMIT ---
This 29 y.o. woman was referred by [facility] Care Team with Dx of Unspecified Bipolar Disorder. Pt has had 1 prior admission to [facility] Behavioral Health unit in 2022. Nurse to nurse done prior to admission. Admission orders received from Dr Hankins. Arrived on unit at 1600 and placed on 15 min safety checks. Conditional Voluntary signed after meeting with Dr Hankins. Precipitating events to admission: Pt called 911 from a y[place]ism on her way to jump off a bridge. Brought to [facility] ED via ambulance due to depression and SI. Pt reports she was not going to jump off the bridge, but was experiencing SI. Reports she is 9 months post and feels she is experiencing post depression. States she has not connected with new born son, but feels she may be starting to. Son is in care of parents. Reports non-compliance with meds and states she would like [facility] to administer meds to remain compliant. Tox screen positive for marijuana, which pt reports daily use. Reports drinking 2-4 nips, 2-3x weekly. Unable to state what drink of choice is. Reports last marijuana use 07/26/24, last drink 07/25/24. Denies withdrawal symptoms. Medical issues: cold symptoms with pt reported productive cough of yellow and sometimes green sputum, asthma, diverticulitis with surgery pending this month. Pt reports vaginal spotting 1-2 times daily. Urine results in ED: blood 2+, Leukocyte Esterase 1+, Urine WBC 21-50. Denies SI/HI, denies AH/VH at present time. upholstery covers inspector/skin integrity check done with 2 staff members present.
[2024-07-27] MEDS: traZODone HCL 50 MG TABLET PO (22:04)
[2024-07-28] MEDS: hydrOXYzine HCL 25 MG TABLET PO ×2 (03:20→15:44)
[2024-07-28] MEDS: traZODone HCL 50 MG TABLET PO ×2 (03:20→20:27)
[2024-07-28 08:00] VITALS: BP 99/60; PULSE 84; RESP 18; O2SAT 97
[2024-07-28] MEDS: Escitalopram Oxalate 5 MG TABLET PO (08:45)
[2024-07-28] MEDS: Cariprazine HCl 3 MG CAPSULE PO (08:45)
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
[2024-07-28] MEDS: LORazepam 1 MG TABLET 2 MG PO ×2 (12:32→20:27)
[2024-07-28] MEDS: Nicotine 21 MG PATCH.TD24 TRANSDERMA (13:31)
[2024-07-28] MEDS: Cariprazine HCl 1.5 MG CAPSULE PO (13:49)
[2024-07-28 20:00] VITALS: BP 146/89; PULSE 94; RESP 14; TEMP 36.9; O2SAT 100
[2024-07-28] MEDS: cloNIDine HCL 0.1 MG TABLET PO (20:27)
[2024-07-29] MEDS: LORazepam 1 MG TABLET 2 MG PO ×2 (04:19→08:50)
[2024-07-29] MEDS: hydrOXYzine HCL 25 MG TABLET PO ×3 (04:21→21:00)
[2024-07-29 07:00] VITALS: BMI 28.3
[2024-07-29] MEDS: Cariprazine HCl 1.5 MG CAPSULE 4.5 MG PO (07:56)
[2024-07-29] MEDS: Escitalopram Oxalate 20 MG TABLET PO (07:56)
[2024-07-29 08:00] VITALS: BP 133/77; PULSE 105; RESP 18; TEMP 36.8; O2SAT 99
[2024-07-29] MEDS: Nicotine 21 MG PATCH.TD24 TRANSDERMA (11:20)
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
[2024-07-29 16:52] VITALS: BP 110/76
[2024-07-29] MEDS: cloNIDine HCL 0.1 MG TABLET PO (16:52)
[2024-07-29 19:57] VITALS: BP 130/68
[2024-07-29] MEDS: Prazosin HCL 1 MG CAPSULE PO (19:57)
[2024-07-29] MEDS: traZODone HCL 100 MG TABLET PO (19:59)
[2024-07-29] MEDS: lamoTRIgine 25 MG TABLET PO (19:59)
[2024-07-29 20:00] VITALS: BP 130/68; PULSE 96; TEMP 36.9; O2SAT 99
[2024-07-30] MEDS: hydrOXYzine HCL 25 MG TABLET PO ×2 (02:25→14:28)
[2024-07-30] MEDS: traZODone HCL 100 MG TABLET PO ×2 (03:59→20:23)
[2024-07-30] MEDS: Nicotine 21 MG PATCH.TD24 TRANSDERMA (08:25)
[2024-07-30] MEDS: Cariprazine HCl 1.5 MG CAPSULE 4.5 MG PO (08:25)
[2024-07-30] MEDS: Escitalopram Oxalate 20 MG TABLET PO (08:25)
[2024-07-30 08:45] VITALS: BP 110/58; PULSE 79; RESP 18; TEMP 36.3; O2SAT 98
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
[2024-07-30 16:28] VITALS: BP 132/82
[2024-07-30] MEDS: cloNIDine HCL 0.1 MG TABLET PO (16:28)
[2024-07-30 20:20] VITALS: BP 128/68; PULSE 85; RESP 16; TEMP 36; O2SAT 100
[2024-07-30] MEDS: Prazosin HCL 1 MG CAPSULE PO (20:22)
[2024-07-30] MEDS: lamoTRIgine 25 MG TABLET PO (20:22)
[2024-07-31] MEDS: Escitalopram Oxalate 20 MG TABLET PO (08:36)
[2024-07-31] MEDS: Cariprazine HCl 1.5 MG CAPSULE 4.5 MG PO (08:36)
[2024-07-31 08:43] VITALS: BP 133/64
[2024-07-31] MEDS: cloNIDine HCL 0.1 MG TABLET PO ×3 (08:43→20:37)
[2024-07-31] MEDS: Nicotine 21 MG PATCH.TD24 TRANSDERMA (08:45)
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
[2024-07-31 13:14] VITALS: BP 112/59
[2024-07-31 20:28] VITALS: BP 127/62; PULSE 71; RESP 16; TEMP 36.6; O2SAT 100
[2024-07-31] MEDS: Prazosin HCL 1 MG CAPSULE PO (20:29)
[2024-07-31] MEDS: lamoTRIgine 25 MG TABLET PO (20:30)
[2024-07-31] MEDS: traZODone HCL 100 MG TABLET PO (20:30)
[2024-08-01 01:47] VITALS: BP 121/71; PULSE 95
[2024-08-01] MEDS: cloNIDine HCL 0.1 MG TABLET PO ×3 (01:51→12:55)
[2024-08-01] MEDS: Cariprazine HCl 1.5 MG CAPSULE 4.5 MG PO (08:58)
[2024-08-01] MEDS: Escitalopram Oxalate 20 MG TABLET PO (08:58)
[2024-08-01 09:00] VITALS: BP 118/62
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
[2024-08-01 12:55] VITALS: BP 106/57
[2024-08-01 20:00] VITALS: BP 100/57; PULSE 75; RESP 15; TEMP 36.3; O2SAT 75
[2024-08-01] MEDS: lamoTRIgine 25 MG TABLET PO (21:01)
[2024-08-01] MEDS: Prazosin HCL 1 MG CAPSULE PO (21:01)
[2024-08-01] MEDS: traZODone HCL 100 MG TABLET PO (21:04)
[2024-08-02 00:56] VITALS: BP 117/65
[2024-08-02] MEDS: cloNIDine HCL 0.1 MG TABLET PO (00:56)
[2024-08-02 08:00] VITALS: BP 104/63; PULSE 80; RESP 18; TEMP 36.1; O2SAT 99
[2024-08-02] MEDS: Escitalopram Oxalate 20 MG TABLET PO (08:41)
[2024-08-02] MEDS: Cariprazine HCl 1.5 MG CAPSULE 4.5 MG PO (08:41)
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
== END 2024-08-02 11:37 | disposition home or self-care (01) | DRG 753 ==
LOC: HO.ED 07-27 14:38 → HO.PM5 07-27 15:43
PROVIDERS: Student in an Organized Health Care Education/Training Program; Admitting Provider Psychiatry & Neurology Psychiatry; Emergency Provider Emergency Medicine Emergency Medical Services; PCP Nurse Practitioner Family; Visit Provider Psychiatry & Neurology Psychiatry
DX: F31.32 Bipolar disorder, current episode depressed, moderate (principal); R45.851 Suicidal ideations; F43.10 Post-traumatic stress disorder, unspecified; Z91.410 Personal history of adult physical and sexual abuse; Z79.899 Other long term (current) drug therapy
CPT/HCPCS: 36415; 80048; 80143; 80179; 80307; 81001; 81025; 85025; 87086; 93005; 99285; J1790; S9485

== ENCOUNTER → 2024-07-26 17:20 | Outpatient (BNV) | payer OTHER, SELFPAY | PROVIDERS: Emergency Provider Emergency Medicine Emergency Medical Services; PCP Nurse Practitioner Family; Visit Provider Internal Medicine | DX: R94.31 Abnormal electrocardiogram [ECG] [EKG] (principal) | CPT/HCPCS: 93010 ==

== ENCOUNTER → 2024-07-27 15:17 | Outpatient (BNV) | payer OTHER, SELFPAY | PROVIDERS: Admitting Provider Psychiatry & Neurology Psychiatry; Emergency Provider Emergency Medicine Emergency Medical Services; PCP Nurse Practitioner Family; Visit Provider Psychiatry & Neurology Psychiatry | DX: F31.32 Bipolar disorder, current episode depressed, moderate (principal); F43.11 Post-traumatic stress disorder, acute | CPT/HCPCS: 99231; 99232 ==